=== PATIENT | female | born 1970 | race Caucasian/White ===

== ENCOUNTER 2023-01-16 10:35 | Outpatient (CLI) | payer BC, SELFPAY ==
--- NOTE | 2023-01-16 11:30 | CRLHL7_ITS ---
For Patients: As a result of the Century Cures Act, medical imaging exams and procedure reports are released immediately into your electronic medical record. You may view this report before your referring provider. If you have questions, please contact your health care provider. BILATERAL SCREENING MAMMOGRAM WITH COMPUTER-AIDED DETECTION TECHNIQUE: CC and MLO views were obtained. These mammographic images have been obtained using full-field digital technique. These mammographic images were interpreted with the benefit of computer-aided detection. COMPARISON FILM: 12/13/21, 09/03/20, 08/06/19. FINDINGS: The breasts are heterogeneously dense, which may obscure small masses IMPRESSION: There is no radiographic evidence for malignancy. ASSESSMENT: BI-RADS Category 2: Benign RECOMMENDATION: Routine screening mammogram in 1 year. A lay language report of this examination will be provided to the patient. Trevor Avalos M.D. Diagnostic Radiologist [email or web address] SLY/margarita / be/Dictated by: Trevor Avalos MD @ 01/16/2023 11:50:00 AM (Electronically Signed)
== END 2023-01-16 10:36 | disposition home or self-care (01) ==
LOC: MAMMO 10:35
PROVIDERS: PCP Family Medicine; Visit Provider Family Medicine
DX: Z12.31 Encounter for screening mammogram for malignant neoplasm of breast (principal); R92.2 Inconclusive mammogram; Z00.00 Encounter for general adult medical examination without abnormal findings; Z13.1 Encounter for screening for diabetes mellitus
CPT/HCPCS: 77063; 77067; 80061; 82947

== ENCOUNTER 2023-11-02 10:45 | Outpatient (CLI) | payer BC, SELFPAY ==
--- OUTSIDE RECORDS SUMMARY | 2023-11-02 10:49 | XMS_ITS | Referral Summary ---
Author Name Unknown Organization [facility] Address [address] [place] [address] Care Team Providers Care Online Merchandising Coordinator Name Role Phone Clinic, [facility] Primary Care Provider Allergies Active Allergy Reactions Criticality Noted Date Comments Penicillin G Anaphylaxis High 05/09/2022 Throat closes Medications Medication Sig Dispensed Refills Start Date End Date Status sertraline (ZOLOFT) 100 MG tablet Take 100 mg by mouth daily Active sodium chloride (NICOLAS 128) 2 % ophthalmic solution 1 drop 4 times daily Active ibuprofen (ADVIL/MOTRIN) 800 MG tabletIndications:C ondyloma acuminata Take 1 tablet (800 mg) by mouth every 6 hours as needed for other (mild and/or inflammatory pain) 30 tablet 07/17/2022 Active HYDROmorphone (DILAUDID) 2 MG tabletIndications:C ondyloma acuminata Take 1-2 tablets (2-4 mg) by mouth every 4 hours as needed for moderate to severe pain 28 tablet 07/17/2022 Active senna-docusate (SENOKOT-S/PERICOLA CE) 8.6-50 MG tabletIndications:C ondyloma acuminata Take 1-2 tablets by mouth 2 times daily 30 tablet 07/17/2022 Active silver sulfADIAZINE (SILVADENE) 1 % external creamIndications:Co ndyloma acuminata Apply topically 2 times daily Apply to sore areas of vulva 50 g 1 07/17/2022 Active Active Problems Problem Noted Date Diagnosed Date 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 Fuchs' corneal dystrophy 05/09/2022 Anxiety and depression 05/09/2022 Social History Tobacco Use Types Packs/Day Years Used Date Smoking Tobacco: Never Smokeless Tobacco: Never Tobacco Cessation:Counseling Given: Not Answered Alcohol Use Standard Drinks/Week Comments Yes 0 (1 standard drink = 0.6 oz pur e alcohol) 2 drinks a week Adolescent Education Answer Date Record ed Getting School Help Needed Not on file 03/31 Sex and Gender Information Value Date Recorded Sex Assigned at Not on file Gender Identity Not on file Sexual Orientation Not on file Last Filed Vital Signs Vital Sign Reading Time Taken Comments Blood Pressure 129/85 07/17/2022 9:47 AM GRINDER OPERATOR EXTERNAL TOOL Pulse 60 07/17/2022 9:47 AM GRINDER OPERATOR EXTERNAL TOOL Temperature 36.6 ??C (97.8 ??F) 07/17/2022 9:47 AM CS T Respiratory Rate 14 07/17/2022 9:47 AM GRINDER OPERATOR EXTERNAL TOOL Oxygen Saturation 99% 07/17/2022 9:47 AM GRINDER OPERATOR EXTERNAL TOOL Inhaled Oxygen Concentration - - Weight 75.2 kg (165 lb 11.2 oz) 07/17/2022 6:15 AM GRINDER OPERATOR EXTERNAL TOOL Height 165.1 cm (5' 5) 07/17/2022 6:15 AM GRINDER OPERATOR EXTERNAL TOOL Body Mass Index 27.57 07/17/2022 6:15 AM GRINDER OPERATOR EXTERNAL TOOL Plan of Treatment Not on file Procedures Procedure Name Priority Date/Time Associated Diagnosis Comments GLUCOSE (EXTERNAL RESULT) Routine 07/13/2022 9:16 AM GRINDER OPERATOR EXTERNAL TOOL from Last 3 Months or Most Recently Relevant to Health Maintenance Results * Glucose (External Result) (07/13/2022 9:16 AM GRINDER OPERATOR EXTERNAL TOOL) Glucose (External) 89 70 - 140 mg/dL LAWRENCE SOLER Blood 07/13/2022 9:16 AM GRINDER OPERATOR EXTERNAL TOOL Narrative BRAVO Abdi WANGA - 07/13/2022 9:16 AM GRINDER OPERATOR EXTERNAL TOOL Care Everywhere, [facility] Provider Outside LAB - HIM EXTERNAL R ESULT LAWRENCE SOLER [address] [place] [address], [facility] [phone] from Last 3 Months or Most Recently Relevant to Health Maintenance Care Teams Online Merchandising Coordinator Relationship Specialty Start Date End Date Clinic, [address] [address] PCP - General 07/17/22
--- OUTSIDE RECORDS SUMMARY | 2023-11-02 10:49 | XMS_ITS | Clinical Summary ---
Author Name Unknown Organization [facility] Address [address] [place] [address] Care Team Providers Care Muleser Name Role Phone Lavell Logan MD Primary Care Provider + Source Comments You are receiving this document as you are listed as the primary care provider,follow-up provider, or the patient has been referred to you for consultation.This is in compliance with the Medicare and[facility] EHR Incentive Program,which states Providers who transition their patient to another setting of careor provider of care or refers their patient to another provider of care shouldprovide summary care record for each transition of care or referral. [facility] Allergies Active Allergy Reactions Criticality Noted Date Comments Penicillins Anaphylaxis High 09/01/2016 Medications Medication Sig Dispensed Refills Start Date End Date Status ibuprofen (MOTRIN) 800 MG tablet 800mg by mouth TID 0 08/09/2016 Active sertraline (ZOLOFT) 50 MG tablet 75mg by mouth daily 11 06/30/2016 Active sertraline (ZOLOFT) 25 MG tabletIndications:Prima ry osteoarthritis of right knee 7 07/31/2016 Active diclofenac (VOLTAREN) 1 % gelIndications:Primary osteoarthritis of right knee Apply up to 2 gm to affected areas up to 4 times daily. 100 g 3 10/06/2016 Active Active Problems Problem Noted Date Diagnosed Date Positive KATARINA (antinuclear antibody) 10/08/2016 Patellofemoral pain syndrome 10/08/2016 Primary osteoarthritis of right knee 10/06/2016 Multiple joint pain 10/06/2016 Immunizations Name Administration Dates Next Due Influenza IIV4 (Quadrivalent) 0.5mL (67351) 04/09 Social History Tobacco Use Types Packs/Day Years Used Date Smoking Tobacco: Never Alcohol Use Standard Drinks/Week Comments Yes 0 (1 standard drink = 0.6 oz pur e alcohol) Sex and Gender Information Value Date Recorded Sex Assigned at Not on file Gender Identity Not on file Sexual Orientation Not on file Plan of Treatment Health Maintenance Due Date Last Done Comments Cervical Cancer Screening Due 1970 Colon Cancer Screening Plan Due 1970 Mammogram 1970 Adult Preventive Visit 1988 DTaP/Tdap/Td (1 - Tdap) 1989 HepB (1) 1989 Cholesterol 2015 Zoster/Shingles (1 of 2) 2020 COVID-19 Vaccine (1 - 2022-2 4 season) 2023 Influenza (#1) 2023 04/28/2016 HIV Screening (Preventive Services) Completed 10/06/2016 Hep C Screening (Preventive Services) Completed 10/06/2016 HepA Aged Out No longer eligi ble based on patient's age to complete this topic Hib Aged Out No longer eligi ble based on patient's age to complete this topic IPV (Polio) Aged Out No longer eligi ble based on patient's age to complete this topic MCV4 Aged Out No longer eligi ble based on patient's age to complete this topic Pneumococcal Aged Out No longer eligi ble based on patient's age to complete this topic Procedures Procedure Name Priority Date/Time Associated Diagnosis Comments HIV-1 P24 AND HIV-1/HIV-2 ANTIBODIES Routine 10/06/2016 2:52 PM CDT Multiple joint pain HEPATITIS C ANTIBODY, WITH REFLEX Routine 10/06/2016 2:52 PM CDT Multiple joint pain from Last 3 Months or Most Recently Relevant to Health Maintenance Results * LAB HIV-1 p24 AND HIV-1/HIV-2 ANTIBODIES (10/06/2016 2:52 PM CDT) HIV-1 p24 Ag and HIV-1/HIV-2 Ab Nonreactive Nonreactive PN SOFT 10/06/2016 2:52 PM CDT 10/06/2016 6:42 PM CDT Narrative PN SOFT - 10/06/2016 7:36 PM CDT Performed at [address] [address] CLIA number [id number] Shari Sommers MD LAB_1 Performing Organization Address [facility] de Phone Number PN SOFT [address] [place] [address] * HCAB - Hepatitis C Virus Ade with Reflex In-House (10/06/2016 2:52 PM CDT) Hepatitis C Antibody Nonreactive Nonreactive PN SOFT 10/06/2016 2:52 PM CDT 10/06/2016 6:42 PM CDT Narrative PN SOFT - 10/06/2016 7:36 PM CDT Performed at [address] [address] CLIA number [id number] Shari Sommers MD LAB_1 Performing Organization Address [facility] de Phone Number PN SOFT [address] [place] [address] from Last 3 Months or Most Recently Relevant to Health Maintenance Care Teams Muleser Relationship Specialty Start Date End Date Lavell Logan MD [address] [phone] PCP - General Family Practice 10/06/16
--- OUTSIDE RECORDS SUMMARY | 2023-11-02 10:49 | XMS_ITS | Clinical Summary ---
Author Name Unknown Organization [facility] Address [place], [place] [address] Care Team Providers Care Embedded Linux Engineer Name Role Phone Lavell Logan MD Primary Care Provide r Allergies Active Allergy Reactions Criticality Noted Date Comments Penicillins Throat Swelling/Closing High 11/16/2016 Medications Medication Sig Dispensed Refills Start Date End Date Status fexofenadine-pseud oephedrine, 180-240 MG, (AKIKO-D) 180-240 mg per tablet Take 1 tablet by mouth once daily. 0 11/16/2016 Active sertraline (ZOLOFT) 50 mg tablet Take 1 tablet by mouth once daily. Takes 1 1/2 tabs per day. To equal 75mg 0 11/16/2016 Active CPAP 1 unit 11/16/2016 Active methylPREDNISolone (MEDROL, TANNER,) 4 mg tabletIndications: Acute sinusitis, recurrence not specified, unspecified location,Seasonal allergic rhinitis, unspecified allergic rhinitis trigger Take by mouth as instructed per packaging. 1 Package 11/16/2016 Active metoclopramide HCl (REGLAN) 10 mg tabletIndications: Abdominal pain, unspecified abdominal location Take 0.5 Tablets (5 mg) by mouth every 6 hours if needed for Nausea/Vomiting for up to 5 days. 10 Tablet 10/11/2023 10/16/2023 Active Problems No known active problems Encounters Date Type Department Care Team Description 10/11/2023 2:18 PM CDT - 10/11/2023 5:22 PM CDT Emergency [facility] [address] [place] [address] Christel Cuenca MD Abdominal pain, unspecified abdominal location (Primary Dx) Discharge Disposition: Home Self Care 10/11/2023 Travel from Last 3 Months Social History Tobacco Use Types Packs/Day Years Used Date Smoking Tobacco: Never Alcohol Use Standard Drinks/Week Comments Yes 0 (1 standard drink = 0.6 oz pur e alcohol) Sex and Gender Information Value Date Recorded Sex Assigned at Not on file Gender Identity Not on file Sexual Orientation Not on file Obstetrics History Last Filed Vital Signs Vital Sign Reading Time Taken Comments Blood Pressure 123/73 10/11/2023 5:10 PM CDT Pulse 73 10/11/2023 5:10 PM CDT Temperature 36.4 ??C (97.5 ??F) 10/11/2023 1:22 PM CD T Respiratory Rate 20 10/11/2023 1:22 PM CDT Oxygen Saturation 99% 10/11/2023 5:10 PM CDT Inhaled Oxygen Concentration - - Weight 72.2 kg (159 lb 3.2 oz) 10/11/2023 1:22 P M CDT Height 165.1 cm (5' 5) 10/11/2023 1:22 PM CDT Body Mass Index 26.49 10/11/2023 1:22 PM CDT Plan of Treatment Health Maintenance Due Date Last Done Comments Tdap 1981 Depression screening for age 12+ 1982 HIV for age 15-65 1985 BMI (ht and wt on same day) for age 18+ 1988 Hepatitis C screening for age 18-79 1988 Tetanus booster 1990 Colonoscopy through age 75 2015 Lipids for age 45-75 2015 Mammogram for age 45-75 2015 Zoster (shingles) series for age 50+ (1 of 2) 2020 COVID-19 vaccine series (2022- season) 2023 05/26/2021, 09/10/2020, 08/10/2020 Influenza for age 50-64 03/09/2024 Pap test for age 21-65 12/23/2024 , 12/23/2021, 05/04/2017, Additional history exists Pneumococcal series for age 6-64 Aged Out No longer eligible based on patient's age to complete this topic Procedures Procedure Name Priority Date/Time Associated Diagnosis Comments CT ABDOMEN PELVIS W STAT 10/11/2023 4 :48 PM CDT URINALYSIS MICROSCOPIC STAT 10/11/2023 3:50 PM CDT UA W/ SEDIMENT EXAM REFLEXED PER CRITERIA STAT 10/11/2023 3:50 PM CDT XR ABDOMEN 2 VIEW FLAT AND UPRIGHT OR DECUBITUS STAT 10/11/2023 3:42 PM CDT RED CELL MORPHOLOGY STAT 10/11/2023 1 :47 PM CDT PLATELET ESTIMATE STAT 10/11/2023 1:4 7 PM CDT MANUAL DIFFERENTIAL STAT 10/11/2023 1 :47 PM CDT CBC WITH AUTO DIFFERENTIAL STAT 10/11/2023 1:47 PM CDT COMP METABOLIC PANEL STAT 10/11/2023 1:47 PM CDT CBC WITH AUTO DIFFERENTIAL STAT 10/11/2023 1:47 PM CDT HPV THIN PREP Routine 12/23/2021 11:00 AM CDT from Last 3 Months or Most Recently Relevant to Health Maintenance Results * CT Abdomen Pelvis w IV (Oral Contrast NO) (10/11/2023 4:48 PM CDT) Anatomical Region Laterality Modality Abdomen, Pelvis, AORTA, LIVER, SPLEEN Computed Tomography Christel Cuenca MD CT * URINALYSIS MICROSCOPIC (10/11/2023 3:50 PM CDT) RBC 0-2 0-2, None Seen /HPF 10/11/2023 3:59 PM [facility] WBC 0-2 0-2, 3-5, None Seen /HPF 10/11/2023 3:59 PM [facility] BACTERIA Few None Seen, Rare, Few Bacteria/H PF 10/11/2023 3:59 PM [facility] EPITHELIAL CELLS Few None Seen, Few Epi/HPF 10/11/2023 3:59 PM [facility] Mucus Present 10/11/2023 3:59 PM [facility] Urine URINE SPECIMEN / Unknown Non-Blood / Unknown 10/11/2023 3:50 PM CDT 10/11/2023 3:53 PM CDT [facility] Ed Triage URINE Performing Organization Address City/State/[facility] Co de Phone Number [facility] [address] [phone] * (ABNORMAL) UA W/ SEDIMENT EXAM REFLEXED PER CRITERIA (10/11/2023 3:50 PM CDT) COLOR Yellow Yellow Color 10/11/2023 3:55 PM [facility] CLARITY Clear Clear Clarity 10/11/2023 3:55 PM [facility] SPECIFIC GRAVITY,URINE 1.010 1.010, 1.015, 1.020, 1.025 10/11/2023 3:55 PM [facility] PH,URINE 6.0 6.0, 7.0, 8.0, 5.5, 6.5, 7.5, 8.5 10/11/2023 3:55 PM [facility] UROBILINOGEN,Q UALITATIVE Normal Normal EU/dl 10/11/2023 3:55 PM [facility] PROTEIN, URINE Negative Negative mg/dL 10/11/2023 3:55 PM [facility] GLUCOSE, URINE Negative Negative mg/dL 10/11/2023 3:55 PM [facility] KETONES,URINE 15(A) Negative mg/dL 10/11/2023 3:55 PM [facility] BILIRUBIN,URIN E Negative Negative 10/11/2023 3:55 PM CDT [facility] OCCULT BLOOD,URINE Trace(A) Negative 10/11/2023 3:55 PM CDT [facility] NITRITE Negative Negative 10/11/2023 3:55 PM CDT [facility] LEUKOCYTE ESTERASE Negative Negative 10/11/2023 3:55 PM CDT [facility] Urine URINE SPECIMEN / Unknown Non-Blood / Unknown 10/11/2023 3:50 PM CDT 10/11/2023 3:53 PM CDT Christel Cuenca MD URINE [facility] [address] [phone] * XR ABDOMEN 2 VIEW FLAT AND UPRIGHT OR DECUBITUS (10/11/2023 3:42 PM CDT) Anatomical Region Laterality Modality Abdomen Digital Radiogra phy Christel Cuenca MD GENERAL ANGUS GING * CBC WITH AUTO DIFFERENTIAL (10/11/2023 1:47 PM CDT) WHITE BLOOD COUNT 4.9 4.5 - 11.0 thou/cu mm 10/11/2023 2:37 PM T [facility] RED BLOOD COUNT 4.08 4.00 - 5.20 mil/cu mm 10/11/2023 2:37 PM T [facility] HEMOGLOBIN 12.5 12.0 - 16.0 g/dL 10/11/2023 2:37 PM T [facility] HEMATOCRIT 37.7 33.0 - 51.0 % 10/11/2023 2:37 PM [facility] MCV 92 80 - 100 fL 10/11/2023 2:37 PM CDT [facility] MCH 30.6 26.0 - 34.0 pg 10/11/2023 2:37 PM T [facility] MCHC 33.2 32.0 - 36.0 g/dL 10/11/2023 2:37 PM CDT [facility] RDW 12.0 11.5 - 15.5 % 10/11/2023 2:37 PM CDT [facility] PLATELET COUNT 350 140 - 440 thou/cu mm 10/11/2023 2:37 PM CDT [facility] MPV 9.8 6.5 - 11.0 fL 10/11/2023 2:37 PM CDT [facility] Blood BLOOD SPECIMEN / Unknown Venipuncture / Unknown 10/11/2023 1:47 PM CDT 10/11/2023 1:53 PM CDT [facility] - 10/11/2023 2:37 PM CDT RN to order if patient presents with abdominal pain. [facility] Ed Triage HEMATOLOGY Performing Organization Address [facility] de Phone Number [address] [phone] * RED CELL MORPHOLOGY (10/11/2023 1:47 PM CDT) RBC COMMENT RBC morphology appears normal RBC morphology appears normal, RBC morphology within normal limits for newborns. 10/11/2023 2:37 PM CDT [facility] Blood BLOOD SPECIMEN / Unknown Venipuncture / Unknown 10/11/2023 1:47 PM CDT 10/11/2023 1:53 PM CDT [facility] - 10/11/2023 2:37 PM CDT RN to order if patient presents with abdominal pain. [facility] Ed Triage HEMATOLOGY Performing Organization Address City/[facility] Co de Phone Number [address] [phone] * PLATELET ESTIMATE (10/11/2023 1:47 PM CDT) PLATELET ESTIMATE Adequate Adequate, No estimate 10/11/2023 2:37 PM CDT [facility] Blood BLOOD SPECIMEN / Unknown Venipuncture / Unknown 10/11/2023 1:47 PM CDT 10/11/2023 1:53 PM CDT [facility] - 10/11/2023 2:37 PM CDT RN to order if patient presents with abdominal pain. [facility] Ed Triage HEMATOLOGY [facility] [address] [phone] * MANUAL DIFFERENTIAL (10/11/2023 1:47 PM CDT) % NEUTROPHILS 66.0 % 10/11/2023 2:37 PM CDT [facility] % LYMPHOCYTES 26.0 % 10/11/2023 2:37 PM [facility] % MONOCYTES 6.0 % 10/11/2023 2:37 PM [facility] % EOSINOPHILS 1.0 % 10/11/2023 2:37 PM T [facility] % BASOPHILS 1.0 % 10/11/2023 2:37 PM [facility] NEUTROPHILS ABSOLUTE 3.2 1.7 - 7.0 thou/cu mm 10/11/2023 2:37 PM T [facility] LYMPHOCYTES ABSOLUTE 1.3 0.9 - 2.9 thou/cu mm 10/11/2023 2:37 PM [facility] MONOCYTES ABSOLUTE 0.3 <0.9 thou/cu mm 10/11/2023 2:37 PM [facility] EOSINOPHILS ABSOLUTE 0.0 <0.5 thou/cu mm 10/11/2023 2:37 PM [facility] BASOPHILS ABSOLUTE 0.0 <0.3 thou/cu mm 10/11/2023 2:37 PM [facility] Blood BLOOD SPECIMEN / Unknown Venipuncture / Unknown 10/11/2023 1:47 PM CDT 10/11/2023 1:53 PM CDT [facility] - 10/11/2023 2:37 PM CDT RN to order if patient presents with abdominal pain. [facility] Ed Triage HEMATOLOGY [facility] [address] [phone] * (ABNORMAL) COMP METABOLIC PANEL (10/11/2023 1:47 PM T) SODIUM 141 136 - 145 mmol/L 10/11/2023 2:17 PM [facility] POTASSIUM 3.6 3.5 - 5.1 mmol/L 10/11/2023 2:17 PM [facility] CHLORIDE 103 98 - 107 mmol/L 10/11/2023 2:17 PM [facility] CO2,TOTAL 27 22 - 29 mmol/L 10/11/2023 2:17 PM [facility] ANION GAP 11 5 - 18 10/11/2023 2:17 PM [facility] GLUCOSE 98 70 - 99 mg/dL 10/11/2023 2:17 PM [facility] CALCIUM 8.9 8.6 - 10.0 mg/dL 10/11/2023 2:17 PM [facility] BUN 12 6 - 20 mg/dL 10/11/2023 2:17 PM [facility] CREATININE 0.68 0.50 - 0.90 mg/dL 10/11/2023 2:17 PM [facility] BUN/CREAT RATIO 18 10 - 20 2:17 PM [facility] eGFR >90 >90 mL/min/1.7 3m2 10/11/2023 2:17 PM [facility] Comment:As of 2021, eG FR is calculated by the CKD-EPI creatinine equation without race adjustment. ??eGFR can be influenced by muscle mass, exercise, and diet. ??The reported eGFR is an estimation only and is only applicable if the renal function is stable. ALBUMIN 4.5 4.0 - 4.9 g/dL 10/11/2023 2:17 PM [facility] PROTEIN,TOTAL 7.5 6.0 - 8.0 g/dL 10/11/2023 2:17 PM [facility] BILIRUBIN,TOTAL 0.4 0.0 - 1.2 mg/dL 10/11/2023 2:17 PM CDT [facility] ALK PHOSPHATASE 77 35 - 104 IU/L 10/11/2023 2:17 PM CDT [facility] ALT (SGPT) 48(H) 10 - 35 IU/L 10/11/2023 2:17 PM CDT [facility] AST (SGOT) 93(H) 10 - 35 IU/L 10/11/2023 2:17 PM CDT [facility] Blood BLOOD SPECIMEN / Unknown Venipuncture / Unknown 10/11/2023 1:47 PM CDT 10/11/2023 1:53 PM CDT Latonia Gracia NP CHEMISTRY [facility] [address] [phone] * HPV HIGH RISK (12/23/2021 11:00 AM CDT) TYPE 16 Negative Negative 12/27/2021 4:59 PM CDT [facility] TYPE 18 Negative Negative 12/27/2021 4:59 PM CDT [facility] OTHER HIGH RISK TYPES Negative Negative 12/27/2021 4:59 PM CDT [facility] Other (Cervical/Vagina l) 12/23/2021 11:00 AM CDT 12/26/2021 10:43 AM CDT Narrative [facility] - 12/27/2021 4:59 PM CDT HPV types 16, 18, 31, 33, 35, 39, 45, 51, 52, 56, 58, 59, 66 and 68 DNA were undetectable or below the pre-set threshold. Methodology: Anrde Clary 4800 HPV Test Federica Torres PA-C [facility]OLOGY [facility] [address] [place] [address], [place] from Last 3 Months or Most Recently Relevant to Health Maintenance Care Teams Embedded Linux Engineer Relationship Specialty Start Date End Date Lavell Logan MD [address] [facility] [address] [phone] PCP - General Family Practice 09/22/13
--- OUTSIDE RECORDS SUMMARY | 2023-11-02 10:49 | XMS_ITS | Clinical Summary ---
Author Name Unknown Organization [facility] Address [address] [place] [id number] Care Team Providers Care Safety Teacher Name Role Phone Clinic, [facility] Primary Care Provider Allergies Active [...] Comments Blood Pressure 129/85 07/17/2022 9:47 AM ROLLER CHECKER Pulse 60 07/17/2022 9:47 AM ROLLER CHECKER Temperature 36.6 ??C (97.8 ??F) 07/17/2022 9:47 AM CS T Respiratory Rate 14 07/17/2022 9:47 AM ROLLER CHECKER Oxygen Saturation 99% 07/17/2022 9:47 AM ROLLER CHECKER Inhaled Oxygen Concentration - - Weight 75.2 kg (165 lb 11.2 oz) 07/17/2022 6:15 AM ROLLER CHECKER Height 165.1 cm (5' 5) 07/17/2022 6:15 AM ROLLER CHECKER Body Mass Index 27.57 07/17/2022 6:15 AM ROLLER CHECKER Plan of Treatment Health Maintenance Due Date Last Done Comments ADVANCE CARE PLANNING 1970 ANNUAL REVIEW OF HM ORDERS 1970 CT COLONOGRAPHY 1970 FIT 1970 FLEX SIG 1970 MAMMO SCREENING 1970 YEARLY PREVENTIVE VISIT 1970 sDNA (Cologuard) 1970 COLONOSCOPY 1980 COLORECTAL CANCER SCREENING 1980 HIV SCREENING 1985 HEPATITIS C SCREENING 1988 HEPATITIS B IMMUNIZATION (1 of 3 - 19+ 3-dose series) 1989 PAP 1991 LIPID 2010 COVID-19 Vaccine (2022- season) 2023 05/26/2021, 09/10/2020, 08/10/2020 INFLUENZA VACCINE (#1) 2023 , 04/28/2020, 07/04/2019, Additional history exists PHQ-2 (once per calendar year) 2023 GLUCOSE 07/13/2025 07/13/2022 DTAP/TDAP/TD IMMUNIZATION (4 - Td or Tdap) 07/03/2028 07/03/2018, 10/09/2007, 10/09/2007 ZOSTER IMMUNIZATION Completed 02/28/2022, 2 HPV IMMUNIZATION Aged Out No longer e ligible based on patient's age to complete this topic IPV IMMUNIZATION Aged Out No longer e ligible based on patient's age to complete this topic MENINGITIS IMMUNIZATION Aged Out No l onger eligible based on patient's age to complete this topic Pneumococcal Vaccine: Pediatrics (0 to 5 Years) and At-Risk Patients (6 to 64 Years) Aged Out No longer eligible based on patient's age to complete this topic RSV MONOCLONAL ANTIBODY Aged Out No l onger eligible based on patient's age to complete this topic Procedures Procedure Name Priority Date/Time Associated Diagnosis Comments GLUCOSE (EXTERNAL RESULT) Routine 07/13/2022 9:16 AM ROLLER CHECKER from Last 3 Months or Most Recently Relevant to Health Maintenance Results * Glucose (External Result) (07/13/2022 9:16 AM ROLLER CHECKER) Glucose (External) 89 70 - 140 mg/dL [facility] SOLER Blood 07/13/2022 9:16 AM ROLLER CHECKER Narrative BRAVO Abdi KELLYSEEFRINO - 07/13/2022 9:16 AM ROLLER CHECKER Care Everywhere, [facility] Provider Outside LAB - HIM EXTERNAL R ESULT BRAVO Abdi KELLYSEFERINO [address] [place] [id number], [facility] [phone] from Last 3 Months or Most Recently Relevant to Health Maintenance Care Teams Safety Teacher Relationship Specialty Start Date End Date Clinic, [facility] [address] [place] [address] PCP - General 07/17/22
--- OUTSIDE RECORDS SUMMARY | 2023-11-02 10:50 | XMS_ITS | Encounter Summary ---
Author Name Unknown Organization [facility] Address [address] [place] [id number] Care Team Providers Care Ground Operations Superintendent Name Role Phone Brock Valenzuela D.O. Primary Care Provide r Encounter Details Date Type Department Care Team (Late st Contact Info) Description 04/03/2022 Orders Only RST [facility] [address] [place] [phone] [facility], Provider Screening Test Laboratory Social History Tobacco Use Types Packs/Day Years Used Date Smoking Tobacco: Never Smokeless Tobacco: Never Alcohol Use Standard Drinks/Week Comments Yes 2 (1 standard drink = 0.6 oz pur e alcohol) Humiliation, Afraid, Rape, and Kick questionnair e Answer Date Recorded Within the last year, have y ou been afraid of your partner or ex-partner? No 02/26/2022 Within the last year, have y ou been humiliated or emotionally abused in other ways by your partner or ex-partner? No Within the last year, have y ou been kicked, hit, slapped, or otherwise physically hurt by your partner or ex-partner? No 02/26/2022 Within the last year, have y ou been raped or forced to have any kind of sexual activity by your partner or ex-partner? No 02/26/2022 Social Connection and Isolat ion Panel [NHANES] Answer Date Recorded In a typical week, how many times do you talk on the phone with family, friends, or neighbors? More than three times a week 02/26/2022 How often do you get togethe r with friends or relatives? Once a week 02/26/2022 How often do you attend chur or catholic services? More than 4 times per year 02/26/2022 Do you belong to any clubs o r organizations such as protestant groups, unions, fraternal or athletic groups, or school groups? No 02/26/2022 How often do you attend meet ings of the clubs or organizations you belong to? Patient declined 02/26/2022 Are you , , di vorced, , never , or living with a partner? 02/26/2022 AUDIT-C Answer Date Recorded Q1: How often do you have a drink containing alc ohol? 2-4 times a month 02/26/2022 Q2: How many drinks containi ng alcohol do you have on a typical day when you are drinking? 1 or 2 02/26/2022 Q3: How often do you have si x or more drinks on one occasion? Never 02/26/2022 Overall Financial Resource Strain (CARDIA) Answe r Date Recorded How hard is it for you to pa y for the very basics like food, housing, medical care, and heating? Not hard at all 02/26/2022 PHQ-2 Answer Date Recorded PHQ-2 Score 0 11/28/2019 [facility] - Occupational Stress Questionnaire Answer Date Recorded Do you feel stress - tense, restless, nervous, or anxious, or unable to sleep at night because your mind is troubled all the time - these days? To some extent 02/26/2022 Exercise Vital Sign Answer Date Recorde d On average, how many days pe r week do you engage in moderate to strenuous exercise (like a brisk walk)? 3 days 02/26/2022 On average, how many minutes do you engage in exercise at this level? 30 min 02/26/2022 Hunger Vital Sign Answer Date Recorded Within the past 12 months, y ou worried that your food would run out before you got the money to buy more. Never true 02/27/20 22 Within the past 12 months, t he food you bought just didn't last and you didn't have money to get more. Never true 02/26/2022 PRAPARE - Transportation Answer Date Re corded In the past 12 months, has l ack of transportation kept you from medical appointments or from getting medications? No 02/07 In the past 12 months, has l ack of transportation kept you from meetings, work, or from getting things needed for daily living? No 02/26/2022 Housing Stability Vital Sign Answer Joao e Recorded In the last 12 months, was t here a time when you were not able to pay the mortgage or rent on time? No 02/26/2022 In the last 12 months, how many places have you lived? 1 02/26/2022 In the last 12 months, was t here a time when you did not have a steady place to sleep or slept in a [place] [facility] [place] (including now)? No 02/26/2022 Nutrition Answer Date Recorded Nutrition: EVOO Fat Source Yes 02/26 On average, how many serving s of fruits and vegetables do you eat per day (serving size is equal to 1 cup or approximately the size of a tennis ball)? 2-3 02/26/2022 Dental Answer Date Recorded Dental: Regular Dentist Yes 02/27/20 Employment Answer Date Recorded Employment status Employed and actively working without restrictions 02/26/2022 Education Answer Date Recorded What is the highest level of school you have completed or the highest degree you have received? Professional school degree (e.g., MD, DDS, DVM, GIORGI) 10/20/2019 Sex and Gender Information Value Date Recorded Sex Assigned at Not on file Gender Identity Female 10/20/2019 10:03 AM CDT Sexual Orientation Straight 10/20/2019 10 :03 AM CDT documented as of this encounter Plan of Treatment Not on file documented as of this encounter Visit Diagnoses Diagnosis Screening Test Laboratory documented in this encounter Additional Health Concerns Infection Onset Date Last Indicated Resolved Time COVID19 Pending 04/04/2022 04/04/2022 04/05/2022 2 :43 AM CDT documented as of this encounter Care Teams Ground Operations Superintendent Relationship Specialty Start Date End Date Brock Valenzuela D.O. [address] [place] [phone] PCP - General Internal Medicine 12/19/19 documented as of this encounter
--- OUTSIDE RECORDS SUMMARY | 2023-11-02 10:50 | XMS_ITS | Referral Summary ---
Author Name Unknown Organization [facility] Address [address] [place] [address] Care Team Providers Care Sandfill Operator Name Role Phone Brock Valenzuela D.O. Primary Care Provide r Source Comments Patient records contain information from all sites at [facility]. For routine questions regarding patient records, call [phone] during business hours, M-F 8:00 AM - 5:00 PM Central Time. Record requests for emergency care only can be directed to [phone] at any time.[facility] Encounters Date Type Department Care Team Description 10/11/2023 1:22 PM CDT - 10/11/2023 5:22 PM CDT Emergency [facility] [address] [place] [phone] Abdominal Pain (Primary Dx) Discharge Disposition: Home or Self Care 10/08/2023 Documentation Department of Family Medicine, [facility], in [address] [phone] South Segovia M.D. 10/08/2023 9:08 AM CDT - 10/08/2023 11:59 PM CDT Hospital Encounter Department of Laboratory Medicine in [place], [place] [address] [place] [phone] Kelley Ruiz D.O. Diarrhea Discharge Disposition: Home or Self Care 10/08/2023 Clinical Communication Primary Care on Demand at [facility] [address] [facility] [place] [address] Kelley Ruiz D.OLeighton 10/08/2023 7:30 AM CDT Telemedicine Primary Care on Demand at [facility] [address] [place] [address] Kelley Ruiz D.Christofer Diarrhea (Primary Dx) 09/11/2023 Orders Only Division of Gastroenterology in [place], [place] [address] [place] [address] Phani Kemp M.D. Genetic Susceptibility To Disease 08/14/2023 Orders Only [facility] PCP TH MNT Brock Valenzuela D.O. Screening Lipid; Screening Mammogram Breast Cancer from Last 3 Months Allergies Active Allergy Reactions Criticality Noted Date Comments Penicillins Anaphylaxis 04/16/2018 Medications Medication Sig Dispensed Refills Start Date End Date Status sertraline (ZOLOFT) 100 mg tablet Take 100 mg by mouth daily. 10/16/2019 Active sodium chloride (NICOLAS 128) 2 % ophthalmic solution 1 drop daily. Ac tive silver sulfADIAZINE (SILVADENE, SSD) 1 % cream APPLY 1.5 MM THICKNESS TOPICALLY NEEDED DIRECTED 2022 Active loperamide (IMODIUM A-D) 2 mg capsule Take 1 capsule (2 mg total) by mouth 4 (four) times a day as needed for diarrhea. 30 capsule 10/08/2023 Active azithromycin (ZITHROMAX) 500 mg tablet Take 1 tablet (500 mg total) by mouth daily for 3 days. 3 tablet 10/08/2023 10/11/2023 Active Problems Problem Noted Date Diagnosed Date Immunization Only 02/28/2022 Immunizations Name Administration Dates Next Due DTaP (Infanrix, Tripedia) 10/09/2007 H1N1 All Forms 07/14/2009 H1N1 Inj 07/14/2009 Influenza (IM) Preservative Free 04/07/2009 Influenza Laiv (Nasal) (Discontinued) 05/01/2011 Influenza Split 04/19/2006,06/25/2000,05/12/1999 Influenza, Injectable, Quadrivalent 04/28/2020 Influenza, Unspecified 04/22/2013,04/25/2010,07/2009 RZV (SHINGRIX) 02/28/2022,12/13/2021 SARS-COV-2 (COVID-19) - MODERNA(Discontinued) 05/26/2021 Tdap 07/03/2018,10/09/2007 influenza vaccine QV(FLUBLOK ) (18 years or older) (PF) 07/04/2019 influenza vaccine quad (FLUZONE/FLUARIX) (6 months and older)(PF) 05/26/2021,05/04/2017,04/28/2016,2014 Social History Tobacco Use Types Packs/Day Years [...] 02/26/2022 How often do you attend chur ch or denominational services? More than 4 times per year 02/26/2022 Do you belong to any clubs o r organizations such as orthodox groups, unions, fraternal or athletic groups, or [...] PHQ-2 Answer Date Recorded PHQ-2 Score 0 07/13/2022 [facility] - [...] place to sleep or slept in a senior care (including now)? No 02/26/2022 Nutrition Answer Date [...] Orientation Straight 10/20/2019 10 :03 AM CDT Last Filed Vital Signs Vital Sign Reading Time Taken Comments Blood Pressure 133/80 07/13/2022 8:21 AM WARPER TENDER Pulse 80 07/13/2022 8:21 AM WARPER TENDER Temperature 36.1 ??C (97 ??F) 07/13/2022 8:21 AM WARPER TENDER Respiratory Rate 18 07/13/2022 8:21 AM WARPER TENDER Oxygen Saturation 99% 07/13/2022 8:21 AM WARPER TENDER Inhaled Oxygen Concentration - - Weight 75.8 kg (167 lb 1.7 oz) 07/13/2022 8:21 A M WARPER TENDER Height 166 cm (5' 5.35) 07/13/2022 8:21 AM WARPER TENDER Body Mass Index 27.51 07/13/2022 8:21 AM WARPER TENDER Plan of Treatment Not on file Procedures Procedure Name Priority Date/Time Associated Diagnosis Comments CT ABDOMEN PELVIS WITH IV CONTRAST RAD - Semiurgent (Fast; most ED patients; some inpatients) 10/11/2023 4:45 PM CDT DX ABDOMEN SUPINE AND UPRIGHT 2 VIEWS RAD - Semiurgent (Fast; most ED patients; some inpatients) 10/11/2023 3:45 PM CDT EXTI COMPREHENSIVE METABOLIC PANEL, S/P Routine 10/11/2023 1:47 PM CDT FAT, F Routine 10/08/2023 11:30 AM CDT Diarrhea CALPROTECTIN, F Routine 10/08/2023 9:50 AM CDT Diarrhea HEMOQUANT, F Routine 10/08/2023 9:50 AM CDT Diarrhea GI PATHOGEN PANEL, PCR, F Routine 10/08/2023 9:50 AM CDT Diarrhea EXT THINPREP W/HPV CO-TEST SCREEN Routine 05/04/2017 LIPID PANEL, S Routine 09/28/2015 7:55 AM CDT BI BREAST SCREENING BILATERAL Routine 03/26/2012 7:33 AM CDT from Last 3 Months or Most Recently Relevant to Health Maintenance Results * CT Abdomen Pelvis with IV Contrast (10/11/2023 4:45 PM CDT) Anatomical Region Laterality Modality Abdomen, Pelvis, Abdominal R ST LOS, Abdominal ARZ LOS, Abdominal FLA LOS N/A Computed Tomography 10/11/2023 4:45 PM CDT Impressions 10/11/2023 5:00 PM CDT Nothing clearcut to explain clinical presentation. Probably physiologic appearance of the rectum and sigmoid colon, as discussed. Tiny bland appearing fluid in the pelvis. Narrative 10/11/2023 5:00 PM CDT EXAM: CT ABDOMEN PELVIS WITH IV CONTRAST COMPARISON: No prior for comparison FINDINGS: No bowel obstruction. Couple areas of decompressed rectum and sigmoid colon are not well evaluated, however, there is no definitive obstruction or stricture or hyperemia. These probably represent physiologic contractions; although infection/inflammation is not strictly excluded, this is not strongly favored. If there is persistent severe or worsening symptoms, consider follow-up imaging. No free air. Tiny bland appearing fluid in the cul-de-sac of the pelvis (series 2, image 266). The appendix appears normal. The bladder is decompressed. Small fat-containing umbilical hernia. Focal fatty infiltration along the fissure for the ligamentum teres. Subcentimeter hypodensity in the right hepatic lobe should be benign in the absence of known malignancy or hepatic dysfunction. No hydronephrosis. No urinary calculi. Procedure Note Ivan Gordon M.D. - 10/11/2023 EXAM: CT ABDOMEN PELVIS WITH IV CONTRAST COMPARISON: No prior for comparison FINDINGS: No bowel obstruction. Couple areas of decompressed rectum andsigmoid colon are not well evaluated, however, there is no definitiveobstruction or stricture or hyperemia. These probably representphysiologic contractions; although infection/inflammation is not strictly excluded, this is not stronglyfavored. If there is persistent severe or worsening symptoms, considerfollow-up imaging. No free air. Tiny bland appearing fluid in [id number] of the pelvis (series 2, image 266). The appendix appears normal. The bladder is decompressed. Smallfat-containing umbilical hernia. Focal fatty infiltration along thefissure for the ligamentum teres. Subcentimeter hypodensity in the righthepatic lobe should be benign in the absence of known malignancy or hepatic dysfunction. No hydronephrosis. No urinarycalculi. IMPRESSION: Nothing clearcut to explain clinical presentation. Probably physiologicappearance of the rectum and sigmoid colon, as discussed. Tiny blandappearing fluid in the pelvis. Christel Cuenca M.D. IM CT PROCEDURES * DX Abdomen Supine and Upright 2 Views (10/11/2023 3:45 PM CDT) Anatomical Region Laterality Modality Abdomen, Abdominal RST LOS, Abdominal ARZ LOS, Abdominal FLA LOS Right Digital Radiography Impressions 10/11/2023 3:53 PM CDT Multiple air distended loops of bowel with small bowel measuring up to 3 cm, may be further evaluated with CT to rule out obstruction. There is however moderate volume large bowel stool burden. No definite pneumoperitoneum. No acute osseous abnormality. Lung bases are clear. Narrative 10/11/2023 3:53 PM CDT EXAM: DX ABDOMEN SUPINE AND UPRIGHT 2 VIEWS Procedure Note Екатерина Cadet D.O. - 10/11/2023 EXAM: DX ABDOMEN SUPINE AND UPRIGHT 2 VIEWS IMPRESSION: Multiple air distended loops of bowel with small bowel measuring up to 3cm, may be further evaluated with CT to rule out obstruction. There ishowever moderate volume large bowel stool burden. No definitepneumoperitoneum. No acute osseous abnormality. Lung bases are clear. Christel Cuenca M.D. IMG DIAGNOSTIC IM AGING PROCEDURES * Fat, Feces (10/08/2023 11:30 AM CDT) Total Weight 18 g 10/10/2023 7:53 AM CDT DTL Duration Random h 10/08/2023 12:02 PM CDT DTL Comment: More reliable results can be obtained from a timed collection. 48 and 72 hour collections will give the most reliable results. Percent Fat >20% in a random collection is suggestive of a fat malabsorption disorder and should be confirmed with a timed collection. % Fat 7 <20 % fat 10/10/2023 11:07 AM CDT DTL Comment: ----ADDITIONAL INFORMATION---- This test was developed and its performance characteristics determined by [facility] in a manner consistent with CLIA requirements. This test has not been cleared or approved by the U.S. Food and Drug Administration. Stool (Stool) 10/08/2023 11: 30 AM CDT 10/09/2023 8:13 AM CDT Kelley Ruiz D.O. LAB BODY FLUIDS AND STOOLS ORDERABLES [facility] [address] [place] [address], [facility] DTL [facility] [address] [place] [address] * (ABNORMAL) GI Pathogen Panel, PCR, Feces (10/08/2023 9:50 AM CDT) Specimen Source STOOL 5:20 PM CDT [facility] Campylobacter species Positive(A) Negative 10/08/2023 5:20 PM CDT [facility] C. difficile toxin Negative Negative 2023 5:20 PM CDT [facility] Plesiomonas shigelloides Negative Negative 10/08/2023 5:20 PM CDT [facility] Salmonella species Negative Negative 2023 5:20 PM CDT [facility] Vibrio species Negative Negative 10/08/2023 5:20 PM CDT [facility] Vibrio cholerae Negative Negative 5:20 PM CDT [facility] Yersinia species Negative Negative 10/08/19 5:20 PM CDT [facility] Enteroaggregative E. coli (EAEC) Negative Negative 10/08/2023 5:20 PM CDT [facility] Enteropathogenic E. coli (EPEC) Negative Negative 10/08/2023 5:20 PM CDT [facility] Enterotoxigenic E. coli (ETEC) Negative Negative 10/08/2023 5:20 PM CDT [facility] Shiga toxin producing E. coli Negative Negative 10/08/2023 5:20 PM CDT [facility] Shigella/Enteroinvas flavio E. coli Negative Negative 10/08/2023 5:20 PM CDT [facility] Cryptosporidium species Negative Negative 10/08/2023 5:20 PM CDT [facility] Cyclospora cayetanensis Negative Negative 10/08/2023 5:20 PM CDT [facility] Entamoeba histolytica Negative Negative 10/08/2023 5:20 PM CDT [facility] Giardia Negative Negative 10/08/2023 5:20 PM CDT [facility] Adenovirus F40/41 Negative Negative 024 5:20 PM CDT [facility] Astrovirus Negative Negative 10/08/2023 5:20 PM CDT [facility] Norovirus GI/GII Negative Negative 10/08/19 5:20 PM CDT [facility] Rotavirus Ag, F Negative Negative 5:20 PM CDT [facility] Sapovirus Negative Negative 10/08/2023 5:20 PM CDT [facility] Comment: ----ADDITIONAL INFORMATION---- This assay is performed using the FDA-cleared Tomorrowish GI Panel ([employer] Semi-Urgent This is a semi-urgent result(RODRIGUEZ) [facility] Stool (Stool) 10/08/2023 9:5 0 AM CDT 10/08/2023 2:42 PM CDT Kelley Ruiz D.O. LAB MICROBIOLOGY - GENERAL ORDERABLES Performing Organization Address [facility] Co de Phone Number [facility] [address] [place] [address], [facility] AUST [address] [place] [address] * HemoQuant, Feces (10/08/2023 9:50 AM CDT) Hemoglobin, Fecal <0.3 <=2 mg Hb/g 10/09/2023 3:47 PM CDT DT Comment: ----ADDITIONAL INFORMATION---- This test was developed and its performance characteristics determined by [facility] in a manner consistent with CLIA requirements. This test has not been cleared or approved by the U.S. Food and Drug Administration. Stool (Stool) 10/08/2023 9:5 0 AM CDT 10/09/2023 8:08 AM CDT Kelley Ruiz D.O. LAB BODY FLUIDS AND STOOLS ORDERABLES Performing Organization Address [facility] Co de Phone Number [facility] [address] [place] [address], [facility] DT [address] [facility] [address] [place] [address] * (ABNORMAL) Calprotectin, Feces (10/08/2023 9:50 AM CDT) Calprotectin, F 1599(H) <50.0 (Normal) mcg/g 10/10/2023 4:[address] [facility] Comment:Interpretation: Abno rmal (>120 mcg/g) Stool (Stool) 10/08/2023 9:5 0 AM CDT 10/10/2023 12:53 PM CDT Kelley Ruiz D.O. LAB BODY FLUIDS AND STOOLS ORDERABLES [facility] [address] [place] [address] [facility] [address] [place] [address] * EXT ThinPrep w/HPV Co-Test Screen (05/04/2017) EXT ThinPrep w/HPV Co-Test Screen Normal - See Scanned Report for Details Normal - See Scanned Report for Details, HIMS - Report Received and Scanned Thin Prep Vial (Cervix/Endocervi x) 05/04/2017 Historical Provider LAB PAP PATHDX ORDER LORRAINE * Lipid Panel (09/28/2015 7:55 AM CDT) Calculated LDL 95 <=129 MGDL POWERCHART Comment: 2014 National Lipid Association recommendations for LDL-C in adults ages 18 and up: Desirable <100 mg/dL Above desirable 100-129 mg/dL Borderline high 130-159 mg/dL High 160-189 mg/dL Very High 190 mg/dL 2014 National Lipid Association recommendations for LDL-C in children ages 2 to 17. Acceptable <110 mg/dL Borderline High 110-129mg/dL High 130 mg/dL LDL-C >190mg/dL: The markedly elevated LDL level is suggestive of a genetic condition such as familial hypercholesterolemia(FH) or familial defective apolipoprotein B-100 (FDB). Molecular genetic testing for FH and FDB is available through [email or web address]: FH/ADH Genetic Reflex Panel (test ADHP). Acquired (non-genetic) causes of markedly increased LDL cholesterol include cholestatic liver disease due to the presence of LpX. If a genetic form of hypercholesterolemia is suspected, family studies including biochemical testing for lipids (total cholesterol,triglycerides, LDL cholesterol and HDL cholesterol) are recommended. ??Please contact the laboratory at or the on-line test catalog at [employer] for information about how to order these tests or to speak with a genetic counselor. Further interpretation would require clinical information. Total Cholesterol/HDL Ratio 3.04 POWERCHART Cholesterol, Total 170 <=199 MGDL POWERCHART Comment: 2014 National Lipid Association recommendations for Total Cholesterol in adults ages 18 and up: Desirable <200 mg/dL Borderline high 200-239 mg/dL High 240 mg/dL 2014 National Lipid Association recommendations for Total Cholesterol in children ages 2 to 17. Acceptable <170 mg/dL Borderline High 170-199 mg/dL High 200 mg/dL HX HDL 56 >=50 MGDL POWERCHART Comment: 2014 National Lipid Association recommendations for HDL-C in adults ages 18 and up: Low <40 mg/dL (Men) Low <50 mg/dL (Women) 2014 National Lipid Association recommendations for HDL-C in children ages 2 to 17. Low <40 mg/dL Borderline Low 40-45 mg/dL Acceptable >45 mg/dL Triglycerides 97 <=149 MGDL POWERCHART Comment: 2014 National Lipid Association recommendations for Triglycerides in adults ages 18 and up: Normal <150 mg/dL Borderline High 150-199 mg/dL High 200-499 mg/dL Very High 500 mg/dL 2014 National Lipid Association recommendations for Triglycerides in children ages 2 to 9. Acceptable <75 mg/dL Borderline High 75-99 mg/dL High 100 mg/dL 2014 National Lipid Association recommendations for Triglycerides in children ages 10 to 17. Acceptable <90 mg/dL Borderline High 90-129 mg/dL High 130 mg/dL Trigs >400mg/dL: Triglycerides >400 mg/dL. Calculated LDL cholesterol is not valid. Non-HDL cholesterol may be used for risk assessment when triglycerides are >400mg/dL. HXLDL/HDL 2 POWERCHART Blood 09/28/2015 7:55 AM CDT Eugene Heredia M.D. LAB BLOOD ADD-ON POWERCHART * BI Breast Screening Bilateral (03/26/2012 7:33 AM CDT) Anatomical Region Laterality Modality Breast Bilateral Mammography 03/26/2012 7:33 AM CDT Impressions 03/26/2012 5:29 PM CDT BI-RADS code 1, negative. Recommendations: ??I recommend a follow-up mammogram in 1 year, self breast exams at least once per month and clinical breast exam at least once per year. ??Of note, benign findings should not deter biopsy in the setting of a palpable abnormality. ??The false negative rate of mammography is approximately 10%. CODE: 1-NEGATIVE Appropriate letter sent. Full field digital mammography is used and Computer Aided Detection is performed on the digital mammogram images. Narrative 03/26/2012 5:29 PM CDT EXAM: ME Mammo Screening w/ CADD INDICATION: mammo COMPARISON: None. FINDINGS: The breasts are heterogeneously dense. The medial inferior portion of the left breast is asymmetrically more dense than the corresponding region in the right breast. Nothing suspicious within either breast, however. Procedure Note Bogdan Millan M.D. / William Juan M.D. - 11/29/2016 EXAM: ME Mammo Screening w/ CADD INDICATION: mammo COMPARISON: None. FINDINGS: The breasts are heterogeneously dense. The medial inferior portion of the left breast is asymmetrically more dense than the corresponding region in the right breast. Nothing suspicious within either breast, however. IMPRESSION: BI-RADS code 1, negative. Recommendations: I recommend a follow-up mammogram in 1 year, self breast exams at least once per month and clinical breast exam at least once per year. Of note, benign findings should not deter biopsy in the setting of a palpable abnormality. The false negative rate of mammography is approximately 10%. CODE: 1-NEGATIVE Appropriate letter sent. Full field digital mammography is used and Computer Aided Detection is performed on the digital mammogram images. Amadeo Valerio(Jerardo)(CT) IMG BI PROCE DURES from Last 3 Months or Most Recently Relevant to Health Maintenance Care Teams Sandfill Operator Relationship Specialty Start Date End Date Brock Valenzuela D.O. [address] [phone] PCP - General Internal Medicine 12/19/19
--- OUTSIDE RECORDS SUMMARY | 2023-11-02 10:50 | XMS_ITS | Encounter Summary ---
Author Name Unknown Organization [facility] Address [address] [place] [address] Care Team Providers Care Oracle Database Manager Name Role Phone Brock Valenzuela D.O. Primary Care Provide r Encounter Details Date Type Department Care Team (Late st Contact Info) Description 09/11/2023 Orders Only Division of Gastroenterology in [place], [place] [address] [place] [address] Phani Kemp M.D. [address] [place] [phone] Genetic Susceptibility To Disease Social History Tobacco Use Types Packs/Day Years [...] often do you attend chur ch or caodaism services? More than 4 times per year 02/26/2022 Do you belong to any clubs o r organizations such as mu-ism groups, unions, fraternal or athletic groups, or [...] Answer Date Recorded PHQ-2 Score 0 07/13/2022 [facility] - Occupational Stress [...] money to buy more. Never true 02/27/20 Within the past 12 months, t he [...] place to sleep or slept in a care home (including now)? No 02/26/2022 Nutrition Answer Date [...] on file documented as of this encounter Procedures Procedure Name Priority Date/Time Associated Diagnosis Comments EXT TAPESTRY Routine 12/29/2022 12:00 AM CDT Genetic Susceptibility To Disease documented in this encounter Results * EXT Tapestry (12/29/2022 12:00 AM CDT) Gene Studied BRCA1,BRCA2,MLH1,MSH 2, MSH6,PMS2,EPCAM,APOB,L DLR,LDLRAP1,PCSK9 02/01/2023 12:00 AM [employer] [facility] Genetic Disease Assessed Evaluation of 11 genes associated with Hereditary Breast and Ovarian Cancer, Mejia Syndrome and Familial Hypercholesterolemia. 02/01/2023 12:00 AM [facility] Genetic Analysis Overall Interpretation Negative results through Tapestry do not replace diagnostic testing for patients with a personal or family history of cancer/hypercholestero lemia due to limitations with methodology. Consider a referral to a genetic counselor for diagnostic testing if warranted. 02/01/2023 12:00 AM [facility] Report See Tapestry PDF Report No actionable gene changes were detected in the genes that cause Familial Hypercholesterolemia. The genes tested for this condition were APOB, LDLR, LDLRAP1, and PCSK9.No actionable gene changes were detected in the genes that cause Hereditary Breast and Ovarian Cancer. The genes tested for this condition were BRCA1 and BRCA2.No actionable gene changes were detected in the genes that cause Mejia Syndrome. The genes tested for this condition were MLH1, MSH2, MSH6, PMS2 and EPCAM. DNA extracted from this individual's sample was captured and enriched using a custom set of reagents ([employer] chemistry). Targeted regions were sequenced using an Illumina DNA sequencing system. Your sequence was matched to a modified version of the chloe standard reference genome (GRCh38). Variant calling was completed using a customized version of [employer] software, requiring 20x coverage for validated variant calls. Copy Number Variants (CNVs) were called using a proprietary bioinformatics pipeline that compared the coverage profile of your sample with the coverage profiles of other reference set samples. [facility] [employer] then analyzed the generated variant data for the exons and 10 bp of flanking intronic sequence (and select tagged intronic variants) of the 11 genes included in [employer] from the [employer] Database. Your sample was reviewed for single nucleotide variants (SNVs), indels up to 20 bp in length, and CNVs that are known or predicted to be actionable. NOTE: This assay has limited sensitivity to CNVs smaller than a few exons. APOB, PCSK9, and LDLR interpretation and reporting is specific to the Familial Hypercholesterolemia phenotype. Variants associated with other phenotypes such as Hypobetalipoproteinemi a are not included. Some known complex variants like the inversion of exons 1-7 in the MSH2 gene (Shelli inversion), exons 11-15 of the PMS2 gene, or variants within or immediately adjacent to long homopolymer runs are not analyzed or reported. There are regions that are not covered, such as deep intronic, promoter, and enhancer regions. This assay cannot detect all variants known to increase disease risk. Other clinical diagnostic testing for these conditions could identify variants not detected by this test. If you have had previous testing, these results should be taken into consideration during risk assessments and medical management. 02/01/2023 12:00 AM CDT [facility] Human Reference Sequence Assembly GRCh38 02/01/2023 12:00 AM CDT [facility] Saliva (Mouth) 12/29/2022 Phani Kemp M.D. LAB GENETI C TESTING [facility] [employer] [id number] [facility], [address] [place] [address], [facility] [address] [facility], [address] [address] documented in this encounter Visit Diagnoses Diagnosis Genetic Susceptibility To Disease documented in this encounter Care Teams Oracle Database Manager Relationship Specialty Start Date End Date Brock Valenzuela D.O. [address] [place] [phone] PCP - General Internal Medicine 12/19/19 documented as of this encounter
--- OUTSIDE RECORDS SUMMARY | 2023-11-02 10:50 | XMS_ITS | Encounter Summary ---
Author Name Unknown Organization [facility] Address [address] [place] [address] Care Team Providers Care Customer Sales Service Manager Name Role Phone Brock Valenzuela D.O. Primary Care Provide r Reason for Referral * Outpatient (Routine) - Authorized Specialty Diagnoses / Procedures Referred By Abby huston Referred To Contact Diagnoses Screening Mammogram Breast Cancer Procedures BI Breast Screening Bilateral with Tomosynthesis Brock Valenzuela D.O. [address] [place] [phone] [facility] Referral ID Status Reason Start Date Expiration Date V isits Requested Visits Authorized [id number] Authorized 08/14/2023 08/13/2024 1 1 T CATCHER Encounter Details Date Type Department Care Team (Late st Contact Info) Description 08/14/2023 Orders Only [facility] SEMN PCP TH MNT Brock Valenzuela D.O. [address] [place] [phone] Screening Lipid; Screening Mammogram Breast Cancer Social History Tobacco Use Types Packs/Day Years [...] week 02/26/2022 [facility] often [facility] attend [facility] or buddhist services? More than 4 times per year 02/26/2022 Do you belong to any clubs o r organizations such as mosque groups, unions, fraternal or athletic groups, or [...] Answer Date Recorded PHQ-2 Score 0 07/13/2022 Citizen Of [place] [facility] Occup[facility] ional [facility] - Occupational Stress [...] place to sleep or slept in a residential (including now)? No 02/26/2022 Nutrition Answer Date [...] you have received? Professional school degree (e.g., , DDS, DVM, GIORGI) 10/20/2019 Sex and Gender Information Value Date Recorded Sex Assigned at Not on file Gender Identity Female 10/20/2019 10:03 AM CDT Sexual Orientation Straight 10/20/2019 10 :03 AM CDT documented as of this encounter Plan of Treatment Scheduled Orders Name Type Priority Associated Diagnoses Order Schedule Lipid Panel Lab Routine Screening Lipid Expected: 08/28/2023, Expires: 02/10/2024 BI Breast Screening Bilateral with Tomosynthesis Imaging RAD - Routine (most inpatients and all outpatients) Screening Mammogram Breast Cancer Expected: 09/13/2023, Expires: 02/10/2024 documented as of this encounter Visit Diagnoses Diagnosis Screening Lipid Screening Mammogram Breast Cancer documented in this encounter Care Teams Customer Sales Service Manager Relationship Specialty Start Date End Date Brock Valenzuela D.O. [address] [place] [phone] PCP - General Internal Medicine 12/19/19 documented as of this encounter
--- OUTSIDE RECORDS SUMMARY | 2023-11-02 10:50 | XMS_ITS | Encounter Summary ---
Author Name Unknown Organization [facility] Address [address] [place] [address] Care Team Providers Care Oil And Gas Recruiter Name Role Phone Brock Valenzuela D.O. Primary Care Provide r Reason for Visit * Reason Comments Abdominal Pain Encounter Details Date Type Department Care Team (Late st Contact Info) Description 10/11/2023 1:22 PM CDT - 10/11/2023 5:22 PM CDT Emergency [facility] [address] [place] [phone] Abdominal Pain (Primary Dx) Discharge Disposition: Home or Self Care Social History Tobacco Use Types Packs/Day Years [...] How often do you attend chur or cheondoism services? More than 4 times per year 02/26/2022 Do you belong to any clubs o r organizations such as pentecostalism groups, unions, fraternal or athletic groups, or [...] Answer Date Recorded PHQ-2 Score 0 07/13/2022 [facility] - Occupational Stress Questionnaire Answer Date Recorded [...] place to sleep or slept in a skilled nursing (including now)? No 02/26/2022 Nutrition Answer Date [...] AM CDT documented as of this encounter Medications at Time of Discharge Medication Sig Dispensed Refills Start Date End Date loperamide (IMODIUM A-D) 2 mg capsule Take 1 capsule (2 mg total) by mouth 4 (four) times a day as needed for diarrhea. 30 capsule 10/08/2023 sertraline (ZOLOFT) 100 mg tablet Take 100 mg by mouth daily. 10/16/2019 silver sulfADIAZINE (SILVADENE, SSD) 1 % cream APPLY 1.5 MM THICKNESS TOPICALLY NEEDED DIRECTED 2022 sodium chloride (NICOLAS 128) 2 % ophthalmic solution 1 drop daily. azithromycin (ZITHROMAX) 500 mg tablet Take 1 tablet (500 mg total) by mouth daily for 3 days. 3 tablet 10/08/2023 10/11/2023 documented as of this encounter Plan of Treatment Not on file documented as of this encounter Procedures Procedure Name Priority Date/Time Associated Diagnosis Comments CT ABDOMEN PELVIS WITH IV CONTRAST RAD - Semiurgent (Fast; most ED patients; some inpatients) 10/11/2023 4:45 PM CDT DX ABDOMEN SUPINE AND UPRIGHT 2 VIEWS RAD - Semiurgent (Fast; most ED patients; some inpatients) 10/11/2023 3:45 PM CDT documented in this encounter Results * CT Abdomen Pelvis with IV [...] free air. Tiny bland appearing fluid in [id number]-vx-qhi of the pelvis (series 2, image 266). [...] osseous abnormality. Lung bases are clear. Christel TRANG DIAGNOSTIC IM AGING PROCEDURES documented in this encounter Visit Diagnoses Diagnosis Abdominal Pain- Primary documented in this encounter Administered Medications Inactive Administered Medications - up to 3 most recent administrations Medication Order MAR Action Action Date Dose Rate Site iohexoL 300 mg iodine/mL solution 100 mL (OMNIPAQUE) 100 mL, intravenous, Once in imaging, contrast, Starting on Magda 10/11/23 at 1644, For 1 dose Given 10/11/2023 4:40 PM CDT 100 mL Right Antecubital sodium chloride 0.9 % flush 75 mL 75 mL, intravenous, Once, On Magda 10/11/23 at 1645, For 1 dose Given 10/11/2023 4:40 PM CDT 75 mL sodium chloride 0.9 % injection 10 mL 10 mL, intravenous, As needed, line care, Starting on Magda 10/11/23 at 1644 Given 10/11/2023 4:40 PM CDT 10 mL Right Antecubital documented in this encounter Active and Recently Administered Medications Times are shown in CDT. Scheduled Medication Order 10/09/2023 10/10/2023 10/11/2023 sodium chloride 0.9 % flush 75 mL (COMPLETED) 75 mL, intravenous, Once, On Magda 10/11/23 at 1645, For 1 dose 1640 (Given - Provid er: Lisbeth Gordon) PRN Medication Order 10/09/2023 10/10/2023 10/11/2023 iohexoL 300 mg iodine/mL solution 100 mL (OMNIPAQUE) (COMPLETED) 100 mL, intravenous, Once in imaging, contrast, Starting on Magda 10/11/23 at 1644, For 1 dose 1640 (Given - Provid er: Lisbeth Gordon - Comment: lot# [id number] 31 jul 2026) sodium chloride 0.9 % injection 10 mL (CANCELED) 10 mL, intravenous, As needed, line care, Starting on Magda 10/11/23 at 1644 1640 (Given - Provid er: Lisbeth Gordon) documented in this encounter Care Teams Oil And Gas Recruiter Relationship Specialty Start Date End Date Brock Valenzuela D.O. [address] [place] [phone] PCP - General Internal Medicine 12/19/19 documented as of this encounter
--- OUTSIDE RECORDS SUMMARY | 2023-11-02 10:50 | XMS_ITS | Encounter Summary ---
Author Name Unknown Organization [facility] Address [address] [place] [address] Care Team Providers Care Therapist Physical Name Role Phone Brock Valenzuela D.O. Primary Care Provide r Encounter Details Date Type Department Care Team (Late st Contact Info) Description 10/08/2023 Clinical Communication Primary Care on Demand at [facility] [address] [place] [address] Kelley Ruiz D.O. [address] [place] [address] Social History Tobacco Use Types Packs/Day Years [...] often do you attend chur ch or sikh services? More than 4 times per year 02/26/2022 Do you belong to any clubs o r organizations such as shinto groups, unions, fraternal or athletic groups, or [...] Answer Date Recorded PHQ-2 Score 0 07/13/2022 [facility] - Occupational [...] place to sleep or slept in a group home (including now)? No 02/26/2022 Nutrition Answer [...] documented as of this encounter Visit Diagnoses Not on filedocumented in this encounter Care Teams Therapist Physical Relationship Specialty Start Date End Date Brock Valenzuela D.O. [address] [place] [phone] PCP - General Internal Medicine 12/19/19 documented as of this encounter
--- OUTSIDE RECORDS SUMMARY | 2023-11-02 10:50 | XMS_ITS ---
Author Name Unknown Organization [facility] Address [address] [place] [address] Care Team Providers Care Alarm Signal Operator Name Role Phone Unavailable Unavailable Unavailable Surgery Details Not on file Complications Check Surgery Details section. Procedure Estimated Blood Loss Check Surgery Details section. Procedure Findings Check Surgery Details section. Procedure Specimens Taken Check Surgery Details section.
--- OUTSIDE RECORDS SUMMARY | 2023-11-02 10:50 | XMS_ITS | Clinical Summary ---
Author Name Unknown Organization [facility] Address [address] [place] [address] Care Team Providers Care Airborne Operations Name Role Phone Brock Valenzuela D.O. Primary Care Provide r Source Comments Patient records contain information from all sites at [facility]. For routine questions regarding patient records, call [phone] during business hours, M-F 8:00 AM - 5:00 PM Central Time. Record requests for emergency care only can be directed to [phone] at any time.[facility] Allergies Active Allergy Reactions Criticality Noted Date [...] Noted Date Diagnosed Date Immunization Only 02/28/2022 Encounters Date Type Department Care Team Description 10/11/2023 1:22 PM CDT - 10/11/2023 5:22 PM CDT Emergency [facility] [address] [place] [phone] Abdominal Pain (Primary Dx) Discharge Disposition: Home or Self Care 10/08/2023 9:08 AM CDT - 10/08/2023 11:59 PM CDT Hospital Encounter Department of Laboratory Medicine in [place], [place] [address] [place] [phone] Kelley Ruiz D.O. Diarrhea Discharge Disposition: Home or Self Care 10/08/2023 7:30 AM CDT Telemedicine Primary Care on Demand at [address] [phone] Kelley Ruiz D.O. Diarrhea (Primary Dx) 10/08/2023 Documentation Department of Family Medicine, [facility], in [address] [phone] [place] M.D. 10/08/2023 Clinical Communication Primary Care on Demand at [address] [phone] Kelley Ruiz D.O. 09/11/2023 Orders Only Division of Gastroenterology in [place], [place] [address] [place] [address] Phani Kemp M.D. Genetic Susceptibility To Disease 08/14/2023 Orders Only [facility] Val[facility] D.O. Screening Lipid; Screening Mammogram Breast Cancer from Last 3 Months Immunizations Name Administration Dates Next Due DTaP [...] quad (FLUZONE/FLUARIX) (6 months and older)(PF) 05/26/2021,05/04/2017,04/28/2016,2014 Family History Medical History Relation Name Comments Hyperlipidemia Brother Bandar Katz Hypertension Brother Bandar Katz Clotting disorder Father Pedro Katz Coronary artery disease Father Pedro Katz Heart attack Father Pedro Katz Hyperlipidemia Father Pedro Katz Diabetes Father's Sister Rere Carreno Colon polyps Mother Nettiemoses [place] Diabetes Mother's Sister Huma Palacios Coronary artery disease Paternal Grandfather Gene [place] ch Coronary artery disease Paternal Grandmother Rebekah B udach Relation Name Status Comments Brother Bandar Katz Father Pedro Budach Father's Sister Rere Carreno Mother Nettie Latoya Mother's Sister Huma [place] Paternal Grandfather Gene Budach Paternal Grandmother Rebekah Budach Social History Tobacco Use Types Packs/Day Years [...] often do you attend chur ch or advent services? More than 4 times per year 02/26/2022 Do you belong to any clubs o r organizations such as sabianist groups, unions, fraternal or athletic groups, or [...] Answer Date Recorded PHQ-2 Score 0 07/13/2022 [facility] - Occupational Stress Questionnaire Answer Date Recorded [...] place to sleep or slept in a nursing home (including now)? No 02/26/2022 Nutrition Answer [...] Comments Blood Pressure 133/80 07/13/2022 8:21 AM HIDE DYER Pulse 80 07/13/2022 8:21 AM HIDE DYER Temperature 36.1 ??C (97 ??F) 07/13/2022 8:21 AM HIDE DYER Respiratory Rate 18 07/13/2022 8:21 AM HIDE DYER Oxygen Saturation 99% 07/13/2022 8:21 AM HIDE DYER Inhaled Oxygen Concentration - - Weight 75.8 kg (167 lb 1.7 oz) 07/13/2022 8:21 A M HIDE DYER Height 166 cm (5' 5.35) 07/13/2022 8:21 AM HIDE DYER Body Mass Index 27.51 07/13/2022 8:21 AM HIDE DYER Plan of Treatment Health Maintenance Due Date Last Done Comments CT Colonography 1970 Cologuard 1970 Colonoscopy 1970 Colorectal Cancer Surveillance 1970 HIV Screening 1970 Hepatitis C Screening 1970 Hepatitis B Vaccines (1 of 3 - 19+ 3-dose series) 1989 Mammogram 03/26/2013 03/26/2012 Lipid (Cholesterol) Screening 09/27/2020 09/28/2015, 09/27/2013, 04/02/2012 COVID-19 Vaccine ( season) 2023 05/26/2021, 09/10/2020, 08/10/2020 Influenza Vaccine (#1) 2023 , 05/26/2021, 04/28/2020, Additional history exists Depression Screening (Annual PHQ-2) 07/09/2023 Cervical Cancer Screening 12/23/20242021, 05/04/2017, 05/04/2017, Additional history exists Fasting Glucose for Diabetes Screening 10/10/2026 10/11/2023, 07/13/2022, 07/13/2022, Additional history exists DTaP,Tdap,and Td Vaccines (4 - Td or Tdap) 07/03/2028 07/03/2018, 10/09/2007, 10/09/2007 Zoster Vaccines Completed 02/28/2022, 12/13/2021 Pneumococcal vaccine (0-64 years) Aged Out No longer eligible based on [...] free air. Tiny bland appearing fluid in drxogm-[id number]-rfb of the pelvis (series 2, image 266). [...] fluid in the pelvis. Christel Cuenca M.D. Zach CT PROCEDURES * DX Abdomen Supine and [...] and its performance characteristics determined by [facility] in a manner consistent with CLIA requirements. This test has not been cleared or approved by the U.S. Food and Drug Administration. Stool (Stool) 10/08/2023 11: 30 AM CDT 10/09/2023 8:13 AM CDT Kelley Ruiz D.O. LAB BODY FLUIDS AND STOOLS ORDERABLES [facility] [address] [place] [address], [facility] DTL [facility] [address] [place] [address] * (ABNORMAL) GI Pathogen Panel, PCR, Feces [...] This assay is performed using the FDA-cleared Scopis GI Panel ([employer] Semi-Urgent This is a semi-urgent result(RODRIGUEZ) [facility] Stool (Stool) 10/08/2023 9:5 0 AM CDT 10/08/2023 2:42 PM CDT Kelley Ruiz D.O. LAB MICROBIOLOGY - GENERAL ORDERABLES Performing Organization Address [facility] Co de Phone Number [facility] [address] [place] [address], [place] [address] [place] [address] * HemoQuant, Feces (10/08/2023 9:50 AM CDT) Hemoglobin, Fecal <0.3 <=2 mg Hb/g 10/09/2023 3:47 PM CDT DTL Comment: ----ADDITIONAL INFORMATION---- This test was developed and its performance characteristics determined by [facility] in a manner consistent with CLIA requirements. This test has not been cleared or approved by the U.S. Food and Drug Administration. Stool (Stool) 10/08/2023 9:5 0 AM CDT 10/09/2023 8:08 AM CDT Kelley Ruiz D.O. LAB BODY FLUIDS AND STOOLS ORDERABLES Performing Organization Address [facility] Co de Phone Number [facility] [address] [place] [address], [facility] DT 200 [facility] [address] [place] [address] * (ABNORMAL) Calprotectin, Feces (10/08/2023 9:50 AM CDT) Calprotectin, F 1599(H) <50.0 (Normal) mcg/g 10/10/2023 4:38 PM CDT [facility] Comment:Interpretation: Abno rmal (>120 mcg/g) Stool (Stool) 10/08/2023 9:5 0 AM CDT 10/10/2023 12:53 PM CDT Kelley Ruiz D.O. LAB BODY FLUIDS AND STOOLS ORDERABLES Performing Organization Address City/[facility] Co de Phone Number [facility] [address] [place] [address] [facility] [address] [place] [address] * EXT ThinPrep w/HPV Co-Test Screen (05/04/2017) [...] for FH and FDB is available through [place] [facility]: FH/ADH Genetic Reflex Panel (test ADHP). Acquired (non-genetic) causes of markedly increased LDL cholesterol include cholestatic liver disease due to the presence of LpX. If a genetic form of hypercholesterolemia is suspected, family studies including biochemical testing for lipids (total cholesterol,triglycerides, LDL cholesterol and HDL cholesterol) are recommended. ??Please contact the laboratory at or the on-line test catalog at [employer] for information about how to order these [...] images. Narrative 03/26/2012 5:29 PM CDT EXAM: [place] Mammo Screening w/ CADD INDICATION: mammo COMPARISON: None. FINDINGS: The breasts are heterogeneously dense. The medial inferior portion of the left breast is asymmetrically more dense than the corresponding region in the right breast. Nothing suspicious within either breast, however. Procedure Note Bogdan Millan M.D. / ProviderWilliam M.D. - 11/29/2016 EXAM: [place] Mammo Screening w/ CADD INDICATION: mammo COMPARISON: [...] performed on the digital mammogram images. Amadeo Valerio(R)(CT) IMG BI PROCE DURES from Last 3 Months or Most Recently Relevant to Health Maintenance Care Teams Airborne Operations Relationship Specialty Start Date End Date Brock Valenzuela D.O. [address] [place] [phone] PCP - General Internal Medicine 12/19/19
--- OUTSIDE RECORDS SUMMARY | 2023-11-02 10:50 | XMS_ITS | Encounter Summary ---
Author Name Unknown Organization [facility] Address [address] [place] [address] Care Team Providers Care Cake Mixer Name Role Phone Brock Valenzuela D.O. Primary Care Provide r Encounter Details Date Type Department Care Team (Latest Contact Info) Description 10/08/2023 9:08 AM CDT - 10/08/2023 11:59 PM CDT Hospital Encounter Department of Laboratory Medicine in [place], [place] [address] [place] [address] Kelley Ruiz D.O. [address] [place] [address] Diarrhea Discharge Disposition: Home or Self Care Social [...] How often do you attend chur or taoism services? More than 4 times per year 02/26/2022 Do you belong to any clubs o r organizations such as voodoo groups, unions, fraternal or athletic groups, or [...] Answer Date Recorded PHQ-2 Score 0 07/13/2022 [facility] Occupat ional Health - Occupational Stress [...] place to sleep or slept in a assisted (including now)? No 02/26/2022 Nutrition Answer Date [...] 10/08/2023 10/11/2023 documented as of this encounter Miscellaneous Notes * Result Encounter Note - Jessica Quiroz M.D. - 10/10/2023 7:15 PM CDT Fecal calprotectin elevated but this is just a marker of inflammation and likely is due to the campylobacter infection she has. * Result Encounter Note - Katerina San M.D. - 10/09/2023 4:26 PM CDT Heme Stool neg * Result Encounter Note - Katerina San M.D. - 10/08/2023 6:26 PM CDT Patient notified of Positive Campylobacter in Stool, Has diarrheal stools every hour with worseninglast 1-2 days, no nausea or vomiting. Advised about Self limiting nature of illness, observation with emphasis on hydration vs antibiotic. 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 Advised to avoid dairy x 4 weeks, add a probiotic once a day and notify / seek in-person care if worse at any time. documented in this encounter Plan of Treatment Not on file documented as of this encounter Procedures Procedure Name Priority Date/Time Associated Diagnosis Comments FAT, F Routine 10/08/2023 11:30 AM CDT Diarrhea GI PATHOGEN PANEL, PCR, F Routine 10/08/2023 9:50 AM CDT Diarrhea HEMOQUANT, F Routine 10/08/2023 9:50 AM CDT Diarrhea CALPROTECTIN, F Routine 10/08/2023 9:50 AM CDT Diarrhea documented in this encounter Results * Fat, Feces (10/08/2023 11:30 AM CDT) [...] developed and its performance characteristics determined by [facility] in a manner consistent with CLIA requirements. This test has not been cleared or approved by the U.S. Food and Drug Administration. Stool (Stool) 10/08/2023 11: 30 AM CDT 10/09/2023 8:13 AM CDT Kelley Ruiz D.O. LAB BODY FLUIDS AND STOOLS ORDERABLES [facility] [address] [place] [address], [facility] [address] [place] [address] * (ABNORMAL) Calprotectin, Feces (10/08/2023 9:50 AM CDT) Calprotectin, F 1599(H) <50.0 (Normal) mcg/g 10/10/2023 4:38 PM CDT [facility] Comment:Interpretation: Abno rmal (>120 mcg/g) Stool (Stool) 10/08/2023 9:5 0 AM CDT 10/10/2023 12:53 PM CDT Kelley Ruiz D.O. LAB BODY FLUIDS AND STOOLS ORDERABLES Performing Organization Address [facility] Co de Phone Number [facility] [address] [place] [address] [facility] [address] [place] [address] * HemoQuant, Feces (10/08/2023 9:50 AM CDT) Hemoglobin, Fecal <0.3 <=2 mg Hb/g 10/09/2023 3:47 PM CDT DTL Comment: ----ADDITIONAL INFORMATION---- This test was developed and its performance characteristics determined by [facility] in a manner consistent with CLIA requirements. This test has not been cleared or approved by the U.S. Food and Drug Administration. Stool (Stool) 10/08/2023 9:5 0 AM CDT 10/09/2023 8:08 AM CDT Kelley Ruiz D.O. LAB BODY FLUIDS AND STOOLS ORDERABLES Performing Organization Address [facility] Co de Phone Number [facility] [address] [place] [address], [facility] DTL [address] [facility] [address] [place] [address] * (ABNORMAL) GI Pathogen Panel, PCR, Feces [...] This assay is performed using the FDA-cleared FilmArray GI Panel ([employer] Semi-Urgent This is a semi-urgent result(RODRIGUEZ) [facility] Stool (Stool) 10/08/2023 9:5 0 AM CDT 10/08/2023 2:42 PM CDT Kelley Ruiz D.O. LAB MICROBIOLOGY - GENERAL ORDERABLES [facility] [address] [place] [address], [facility] AUST [address] [place] [address] documented in this encounter Visit Diagnoses Diagnosis Diarrhea documented in this encounter Care Teams Cake Mixer Relationship Specialty Start Date End Date Brock Valenzuela D.O. [address] [place] [phone] PCP - General Internal Medicine 12/19/19 documented as of this encounter
--- OUTSIDE RECORDS SUMMARY | 2023-11-02 10:50 | XMS_ITS | Encounter Summary ---
Author Name Unknown Organization [facility] Address [address] [place] [address] Care Team Providers Care Qa Automation Architect Name Role Phone Brock Valenzuela D.O. Primary Care Provide r Reason for Visit * Reason Comments Diarrhea Encounter Details Date Type Department Care Team (Late st Contact Info) Description 10/08/2023 7:30 AM CDT Telemedicine Primary Care on Demand at [facility] [address] [place] [address] Kelley Ruiz D.OLeighton [address] [place] [address] Diarrhea (Primary Dx) Social History Tobacco Use Types Packs/Day Years [...] week 02/26/2022 How often do you attend [facility] or latter day services? More than 4 times per year [...] Answer Date Recorded PHQ-2 Score 0 07/13/2022 [facility] Occupat ional Health - [...] AM CDT documented as of this encounter Progress Notes * Kelley Ruiz, D.O. - 10/08/2023 7:30 AM CDT DATE OF VISIT: 10/08/2023 SUBJECTIVE CHIEF COMPLAINT / REASON FOR VISIT Bonnie Farmer is a 53 y.o. female who presents for evaluation of Diarrhea. HISTORY OF PRESENT ILLNESS Reports frequent, watery diarrhea for 4 days. She is stooling almost every 15 minutes. Last night she went 3 hours between stools but that is by far the longest she has gone between stools in the last 4 days. She does have IBS and is used to having diarrhea. But this is different, it came on out of nowhere and it is super sour smelling. Is having a lot of gas all the time. She has tried Gas-X and it isn't helping. Denies blood in the stools. Started out loose and is now just watery with small amounts of stool mixed in. Everything she eats or drinks comes right out. The stools do not seem fatty. She does have nausea. She is able to keep down liquids but they trigger stooling as well. She does use miralax for constipation a couple times a week at baseline but has not taken it since the diarrhea began. She has had a colonoscopy, reports several polyps were found and she just got a reminder she is duefor rescreening. Mother has colon polyps but no family history of colon cancer. Her doctor's said to avoid immodium because of her constipation with her IBS. 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 She has taken maalox. Has zantac but hasn't taken it. She believes her nausea is related to acid reflux. REVIEW OF SYSTEMS No sick contacts No change in diet No new supplements No new medications No recent travel No exposure to bodies of water No recent hospitalization The following portions of the patient's history were reviewed and updated as appropriate: Tobacco Allergies Meds Problems Med Hx Surg Hx Fam Hx OBJECTIVE VITAL SIGNS There were no vitals taken for this visit. PHYSICAL EXAM Constitutional General: She is not in acute distress. Appearance: Normal appearance. HENT Head: Normocephalic and atraumatic. Eyes Extraocular Movements: Extraocular movements intact. Pulmonary Effort: Pulmonary effort is normal. Breath sounds: No wheezing. Neurological General: No focal deficit present. Mental Status: She is alert and oriented to person, place, and time. Psychiatric Mood and Affect: Mood normal. Behavior: Behavior normal. Thought Content: Thought content normal. Judgment: Judgment normal. ASSESSMENT / PLAN #1 Diarrhea - GI Pathogen Panel, PCR, Feces; Future; Expected date: 10/08/2023 - HemoQuant, Feces; Future; Expected date: 10/08/2023 - Fat, Feces; Future; Expected date: 10/08/2023 - Calprotectin, Feces; Future; Expected date: 10/08/2023 Other orders - loperamide (IMODIUM A-D) 2 mg capsule; Take 1 capsule (2 mg total) by mouth 4 (four) times a day as needed for diarrhea., Starting 10/08/2023, Normal Concern for infectious etiology based on watery nature, frequency of stools, and foul odor. C. Diffis on differential. She has no risk factors for ksenia C. Diff or other infectious etiology, however. She is unable to return to work due to the frequency of stooling (every 15 min on average). Will order stool testing for C. Diff, other infectious etiologies, as well as IBD markers due to the current severity of symptoms. She will contact her local [facility] lab to make sure they have the orders and get her testing supplies and instructions assembled for her. Will also have her try loperamide for temporary relief. May take the zantac she has on hand for acid reflux. Continue bland diet as tolerated and continue to push water. Avoid caffeinated or sugary beverages. Will contact patient with stool results as they return. Advised to reach back to OD if she develops fever, vomiting, or blood in the stools. Consult conducted via real-time audio/video technology by Kelley Ruiz D.O. in [facility], Primary Care On Demand to the patient in Patient's Home INFORMED CONSENT The risks and benefits of the current and proposed medications were reviewed, including but not limited to the common side effects. The patient was informed of alternative treatments, the consequences of no treatment, and the expected duration of treatment. The patient appeared to appreciate the information conveyed in the consent process by asking appropriate questions and expressing understanding of these potential risks and benefits. The patient understood and agreed to the plan. documented in this encounter Plan of Treatment Not on file documented as of this encounter Results * Fat, Feces (10/08/2023 [...] developed and its performance characteristics determined by [facility] in a manner consistent with CLIA requirements. This test has not been cleared or approved by the U.S. Food and Drug Administration. Stool (Stool) 10/08/2023 11: 30 AM CDT 10/09/2023 8:13 AM CDT Kelley Ruiz D.O. LAB BODY FLUIDS AND STOOLS ORDERABLES Performing Organization Address City/[facility]/ZIP Co de Phone Number [facility] [address] [place] [address], [facility] [address] [place] [address] * (ABNORMAL) Calprotectin, Feces (10/08/2023 9:50 AM CDT) Pathologist [facility] Calprotectin, F 1599(H) <50.0 (Normal) mcg/g 10/10/2023 4:38 PM CDT [facility] Comment:Interpretation: Abno rmal (>120 mcg/g) Stool (Stool) 10/08/2023 9:5 0 AM CDT 10/10/2023 12:53 PM CDT Kelley Ruiz D.O. LAB BODY FLUIDS AND STOOLS ORDERABLES [facility] [address] [place] [address] [facility] [address] [place] [address] * HemoQuant, Feces (10/08/2023 9:50 AM CDT) Hemoglobin, Fecal <0.3 <=2 mg Hb/g 10/09/2023 3:47 PM CDT [facility] Comment: ----ADDITIONAL INFORMATION---- This test was developed and its performance characteristics determined by [facility] in a manner consistent with CLIA requirements. This test has not been cleared or approved by the U.S. Food and Drug Administration. Stool (Stool) 10/08/2023 9:5 0 AM CDT 10/09/2023 8:08 AM CDT Kelley Ruiz D.O. LAB BODY FLUIDS AND STOOLS ORDERABLES [facility] [address] [place] [address], [facility] DTL [address] [facility] [address] [place] [address] * (ABNORMAL) GI Pathogen Panel, PCR, Feces (10/08/2023 9:50 AM CDT) Pathologist [facility] Specimen Source STOOL 5:20 PM CDT AUST [...] CDT AUST Norovirus GI/GII Negative Negative 10/08/19 24 5:20 PM CDT [facility] Rotavirus Ag, F Negative Negative 5:20 PM CDT [facility] Sapovirus Negative Negative 10/08/2023 5:20 PM CDT [facility] Comment: ----ADDITIONAL INFORMATION---- This assay is performed using the FDA-cleared [employer] Research[employer] GI Panel ([facility] Semi-Urgent This is a semi-urgent result(RODRIGUEZ) [facility] Stool (Stool) 10/08/2023 9:5 0 AM CDT 10/08/2023 2:42 PM CDT Kelley Ruiz D.O. LAB MICROBIOLOGY - GENERAL ORDERABLES [facility] [address] [place] [address], [facility] AUST [address] [place] [address] documented in this encounter Visit Diagnoses Diagnosis Diarrhea- Primary documented in this encounter Care Teams Qa Automation Architect Relationship Specialty Start Date End Date Brock Valenzuela D.O. [address] [place] [phone] PCP - General Internal Medicine 12/19/19 documented as of this encounter
--- OUTSIDE RECORDS SUMMARY | 2023-11-02 10:50 | XMS_ITS | Encounter Summary ---
Author Name Unknown Organization [facility] Address [address] [place] [address] Care Team Providers Care Washateria Attendant Name Role Phone Brock Valenzuela D.O. Primary Care Provide r Encounter Details Date Type Department Care Team (Late st Contact Info) Description 10/08/2023 Documentation Department of Family Medicine, [facility], in [place], [place] [address] [place] [phone] South Segovia M.D. [address] [place] [phone] Social History Tobacco Use Types Packs/Day Years [...] How often do you attend chur or mosque services? More than 4 times per year 02/26/2022 Do you belong to any clubs o r organizations such as holiness groups, unions, fraternal or athletic groups, or [...] Answer Date Recorded PHQ-2 Score 0 07/13/2022 [facility] Occupat ional Health - Occupational [...] place to sleep or slept in a long term (including now)? No 02/26/2022 Nutrition Answer Date [...] as of this encounter Progress Notes * [place] Segovia M.D. - 10/08/2023 5:47 PM CDT Patient with Campylobacter noted on GI pathogen panel. To be addressed by primary provider documented in this encounter Plan of Treatment Not on file documented as of this encounter Visit Diagnoses Not on filedocumented in this encounter Care Teams Washateria Attendant Relationship Specialty Start Date End Date Brock Valenzuela D.O. [address] [place] [phone] PCP - General Internal Medicine 12/19/19 documented as of this encounter
--- NOTE | 2023-11-02 12:08 | W.ANESCHARGE ---
Anesthesia Charges Start Date/Time Anesthesia Start Date: 11/02/23 Anesthesia Start Time: 11:50 Stop Date/Time Anesthesia Stop Date: 11/02/23 Anesthesia Stop Time: 12:10
--- NOTE | 2023-11-02 13:29 | W.ANESCHARGE ---
Anesthesia Charges Start Date/Time Anesthesia Start Date: 11/02/23 Anesthesia Start Time: 11:50 Stop Date/Time Anesthesia Stop Date: 11/02/23 Anesthesia Stop Time: 12:10
== END 2023-11-02 10:46 | disposition home or self-care (01) ==
LOC: OP CLINIC 10:47
PROVIDERS: PCP Family Medicine; Visit Provider Internal Medicine
DX: Z86.010 Personal history of colon polyps (principal); K64.8 Other hemorrhoids
CPT/HCPCS: 00812; 45378; J2704

== ENCOUNTER 2024-02-06 08:25 | Outpatient (CLI) | payer BC, SELFPAY ==
--- OUTSIDE RECORDS SUMMARY | 2024-02-06 08:30 | XMS_ITS | Referral Summary ---
Author Organization [facility] Address [address] [place] [address] Care Team Providers Care Gas Golf Cart Repairer Name Role Phone Brock Valenzuela D.O. Primary Care Provide r Source Comments Patient records contain information from all sites at [facility]. For routine questions regarding patient records, call [phone] during business hours, M-F 8:00 AM - 5:00 PM Central Time. Record requests for emergency care only can be directed to [phone] at any time.[facility] Allergies Active Allergy Reactions Criticality Noted Date [...] needed for diarrhea. 30 capsule 10/08/2023 Active Active Problems Problem Noted Date Diagnosed [...] week 02/26/2022 How often do you attend [facility] or moravian services? More than 4 times per year [...] Answer Date Recorded PHQ-2 Score 0 07/13/2022 [facility] of Occupat ional Health - Occupational Stress [...] Comments Blood Pressure 133/80 07/13/2022 8:21 AM UTILITY WORKER PRODUCTION Pulse 80 07/13/2022 8:21 AM UTILITY WORKER PRODUCTION Temperature 36.1 ??C (97 ??F) 07/13/2022 8:21 AM UTILITY WORKER PRODUCTION Respiratory Rate 18 07/13/2022 8:21 AM UTILITY WORKER PRODUCTION Oxygen Saturation 99% 07/13/2022 8:21 AM UTILITY WORKER PRODUCTION Inhaled Oxygen Concentration - - Weight 75.8 kg (167 lb 1.7 oz) 07/13/2022 8:21 A M UTILITY WORKER PRODUCTION Height 166 cm (5' 5.35) 07/13/2022 8:21 AM UTILITY WORKER PRODUCTION Body Mass Index 27.51 07/13/2022 8:21 AM UTILITY WORKER PRODUCTION Plan of Treatment Not on file Procedures Procedure Name Priority Date/Time Associated Diagnosis Comments RENAL FUNCTION PANEL, S Routine 07/13/2022 9:16 AM UTILITY WORKER PRODUCTION Preoperative Exam EXT THINPREP W/HPV CO-TEST SCREEN Routine 05/04/2017 LIPID PANEL, S Routine 09/28/2015 7:55 AM CDT BI BREAST SCREENING BILATERAL Routine 03/26/2012 7:33 AM CDT from Last 3 Months or Most Recently Relevant to Health Maintenance Results * (ABNORMAL) Renal Function Panel (07/13/2022 9:16 AM UTILITY WORKER PRODUCTION) Potassium, P 4.9 3.6 - 5.2 mmol/L 07/13/2022 9:48 AM UTILITY WORKER PRODUCTION OWAT Sodium, P 141 135 - 145 mmol/L 07/13/2022 9:48 AM UTILITY WORKER PRODUCTION OWAT Chloride, P 103 98 - 107 mmol/L 07/13/2022 9:48 AM UTILITY WORKER PRODUCTION OWAT Bicarbonate, P 30(H) 22 - 29 mmol/L 07/13/2022 9:48 AM UTILITY WORKER PRODUCTION OWAT Anion Gap, P 8 7 - 15 07/13/2022 9:48 AM UTILITY WORKER PRODUCTION OWAT BUN (Blood Urea Nitrogen), P 15 6 - 21 mg/dL 07/13/2022 9:48 AM UTILITY WORKER PRODUCTION OWAT Creatinine 0.68 0.59 - 1.04 mg/dL 07/13/2022 9:48 AM UTILITY WORKER PRODUCTION OWAT Estimated GFR (eGFR) >90 >=60 mL/min/BSA 07/13/2022 9:48 AM UTILITY WORKER PRODUCTION OWAT Comment: Estimated GFR calculated using the 2020 CKD_EPI creatinine equation. Calcium, Total, P 9.3 8.6 - 10.0 mg/dL 07/13/2022 9:48 AM UTILITY WORKER PRODUCTION OWAT Glucose, P 89 70 - 140 mg/dL 07/13/2022 9:48 AM UTILITY WORKER PRODUCTION OWAT Albumin, P 4.4 3.5 - 5.0 g/dL 07/13/2022 9:48 AM UTILITY WORKER PRODUCTION OWAT Phosphorus (Inorganic), P 2.5 2.5 - 4.5 mg/dL 07/13/2022 4:22 PM UTILITY WORKER PRODUCTION AUST Blood (Blood, Venous) 07/13/2022 9:16 AM UTILITY WORKER PRODUCTION 07/13/2022 9:24 AM UTILITY WORKER PRODUCTION Narrative [facility] - 07/13/2022 4:22 PM UTILITY WORKER PRODUCTION Specimen Information: Specimen ID: [id number] Specimen Type: Blood Specimen Collection Start Date: 07/13/2022 ??9:16 AM Specimen Received Date: 07/13/2022 ??9:24 AM Specimen ID: [id number] Specimen Type: Blood Specimen Collection Start Date: 07/13/2022 ??9:16 AM Specimen Received Date: 07/13/2022 ??3:57 PM Brock Valenzuela D.O. LAB BLOOD ADD -ON [facility] [address] [place] [address], [facility] [place] [address] [place] [address] AUST [facility] [address] [place] [address] * EXT ThinPrep w/HPV Co-Test Screen (05/04/2017) [...] for FH and FDB is available through [employer]: FH/ADH Genetic Reflex Panel (test ADHP). Acquired (non-genetic) causes of markedly increased LDL cholesterol include cholestatic liver disease due to the presence of LpX. If a genetic form of hypercholesterolemia is suspected, family studies including biochemical testing for lipids (total cholesterol,triglycerides, LDL cholesterol and HDL cholesterol) are recommended. ??Please contact the laboratory at or the on-line test catalog at [employer] for information about how to order these [...] POWERCHART Blood 09/28/2015 7:55 AM CDT Eugene E Bunkers M.D. LAB BLOOD ADD-ON POWERCHART * BI [...] images. Narrative 03/26/2012 5:29 PM CDT EXAM: CT Mammo Screening w/ CADD INDICATION: mammo COMPARISON: None. FINDINGS: The breasts are heterogeneously dense. The medial inferior portion of the left breast is asymmetrically more dense than the corresponding region in the right breast. Nothing suspicious within either breast, however. Procedure Note Bogdan Millan M.D. / William Juan M.D. - 11/29/2016 EXAM: CT Mammo Screening w/ CADD INDICATION: mammo COMPARISON: [...] Recently Relevant to Health Maintenance Care Teams Gas Golf Cart Repairer Relationship Specialty Start Date End Date Brock Valenzuela D.O. [address] [phone] PCP - General Internal Medicine 12/19/19
--- OUTSIDE RECORDS SUMMARY | 2024-02-06 08:30 | XMS_ITS | Clinical Summary ---
Author Organization [facility] Address [address] [place] [address] Care Team Providers Care Fur Grader Name Role Phone Brock Valenzuela D.O. Primary Care Provide r Source Comments Patient records contain information from all sites at [facility]. For routine questions regarding patient records, call [phone] during business hours, M-F 8:00 AM - 5:00 PM Central Time. Record requests for emergency care only can be directed to [phone] at any time.[facility] Allergies Active Allergy Reactions Criticality Noted Date [...] Father's Sister Rere Carreno Colon polyps Mother Nettie Klein Diabetes Mother's Sister Huma Palacios Coronary artery disease Paternal Grandfather Gene Jose ch Coronary artery disease Paternal Grandmother Rebekah B udach Relation Name Status Comments Brother Bandar Katz Father Pedro Katz Father's Sister Rere Carreno Mother Nettie Littlejohna Mother's Sister Huma Palacios Paternal Grandfather Gene [...] How often do you attend chur or mandaeism services? More than 4 times per year 02/26/2022 Do you belong to any clubs o r organizations such as roman catholic groups, unions, fraternal or athletic groups, or [...] Answer Date Recorded PHQ-2 Score 0 07/13/2022 [facility] of Occupat ional Health - [...] place to sleep or slept in a intermediate (including now)? No 02/26/2022 Nutrition Answer Date [...] Comments Blood Pressure 133/80 07/13/2022 8:21 AM ACID LEVELER Pulse 80 07/13/2022 8:21 AM ACID LEVELER Temperature 36.1 ??C (97 ??F) 07/13/2022 8:21 AM ACID LEVELER Respiratory Rate 18 07/13/2022 8:21 AM ACID LEVELER Oxygen Saturation 99% 07/13/2022 8:21 AM ACID LEVELER Inhaled Oxygen Concentration - - Weight 75.8 kg (167 lb 1.7 oz) 07/13/2022 8:21 A M ACID LEVELER Height 166 cm (5' 5.35) 07/13/2022 8:21 AM ACID LEVELER Body Mass Index 27.51 07/13/2022 8:21 AM ACID LEVELER Plan of Treatment Health Maintenance Due Date Last Done Comments CT Colonography 1970 Cologuard 1970 Colonoscopy 1970 Colorectal Cancer Surveillance 1970 HIV Screening 1970 Hepatitis C Screening 1970 Hepatitis B Vaccines (1 of 3 - 19+ 3-dose series) 1989 Mammogram 03/26/2013 03/26/2012 Lipid (Cholesterol) Screening 09/27/2020 09/28/2015, 09/27/2013, 04/02/2012 COVID-19 Vaccine ( season) 2023 05/26/2021, 09/10/2020, 08/10/2020 Depression Screening (Annual PHQ-2) 07/09/2023 Influenza Vaccine (#1) 2024 , 05/26/2021, 04/28/2020, Additional history exists Cervical Cancer Screening 12/23/20242021, 05/04/2017, 05/04/2017, Additional [...] FUNCTION PANEL, S Routine 07/13/2022 9:16 AM ACID LEVELER Preoperative Exam EXT THINPREP W/HPV CO-TEST SCREEN Routine 05/04/2017 LIPID PANEL, S Routine 09/28/2015 7:55 AM CDT BI BREAST SCREENING BILATERAL Routine 03/26/2012 7:33 AM CDT from Last 3 Months or Most Recently Relevant to Health Maintenance Results * (ABNORMAL) Renal Function Panel (07/13/2022 9:16 AM ACID LEVELER) Potassium, P 4.9 3.6 - 5.2 mmol/L 07/13/2022 9:48 AM ACID LEVELER OWAT Sodium, P 141 135 - 145 mmol/L 07/13/2022 9:48 AM ACID LEVELER OWAT Chloride, P 103 98 - 107 mmol/L 07/13/2022 9:48 AM ACID LEVELER OWAT Bicarbonate, P 30(H) 22 - 29 mmol/L 07/13/2022 9:48 AM ACID LEVELER OWAT Anion Gap, P 8 7 - 15 07/13/2022 9:48 AM ACID LEVELER OWAT BUN (Blood Urea Nitrogen), P 15 6 - 21 mg/dL 07/13/2022 9:48 AM ACID LEVELER OWAT Creatinine 0.68 0.59 - 1.04 mg/dL 07/13/2022 9:48 AM ACID LEVELER OWAT Estimated GFR (eGFR) >90 >=60 mL/min/BSA 07/13/2022 9:48 AM ACID LEVELER OWAT Comment: Estimated GFR calculated using the 2020 CKD_EPI creatinine equation. Calcium, Total, P 9.3 8.6 - 10.0 mg/dL 07/13/2022 9:48 AM ACID LEVELER OWAT Glucose, P 89 70 - 140 mg/dL 07/13/2022 9:48 AM ACID LEVELER OWAT Albumin, P 4.4 3.5 - 5.0 g/dL 07/13/2022 9:48 AM ACID LEVELER OWAT Phosphorus (Inorganic), P 2.5 2.5 - 4.5 mg/dL 07/13/2022 4:22 PM ACID LEVELER AUST Blood (Blood, Venous) 07/13/2022 9:16 AM ACID LEVELER 07/13/2022 9:24 AM ACID LEVELER Narrative [facility] - 07/13/2022 4:22 PM ACID LEVELER Specimen Information: Specimen ID: [id number] Specimen Type: Blood Specimen Collection Start Date: 07/13/2022 ??9:16 AM Specimen Received Date: 07/13/2022 ??9:24 AM Specimen ID: [id number] Specimen Type: Blood Specimen Collection Start Date: 07/13/2022 ??9:16 AM Specimen Received Date: 07/13/2022 ??3:57 PM Brock Valenzuela D.O. LAB BLOOD ADD -ON [facility] [address] [place] [address], [facility] OWAT [facility] in [place] [address] [place] [address] AUST [facility] - [facility] [address] [place] [address] * EXT ThinPrep w/HPV Co-Test Screen (05/04/2017) [...] for FH and FDB is available through [facility]: FH/ADH Genetic Reflex Panel (test ADHP). Acquired (non-genetic) causes of markedly increased LDL cholesterol include cholestatic liver disease due to the presence of LpX. If a genetic form of hypercholesterolemia is suspected, family studies including biochemical testing for lipids (total cholesterol,triglycerides, LDL cholesterol and HDL cholesterol) are recommended. ??Please contact the laboratory at or the on-line test catalog at [employer] for information about how to order these [...] images. Narrative 03/26/2012 5:29 PM CDT EXAM: [place] Mammo Screening w/ CADD INDICATION: mammo COMPARISON: None. FINDINGS: The breasts are heterogeneously dense. The medial inferior portion of the left breast is asymmetrically more dense than the corresponding region in the right breast. Nothing suspicious within either breast, however. Procedure Note Bogdan Millan M.D. / William Juan M.D. - 11/29/2016 EXAM: [place] Mammo Screening w/ CADD INDICATION: mammo COMPARISON: [...] Recently Relevant to Health Maintenance Care Teams Fur Grader Relationship Specialty Start Date End Date Brock Valenzuela D.O. [address] [phone] PCP - General Internal Medicine 12/19/19
--- OUTSIDE RECORDS SUMMARY | 2024-02-06 08:30 | XMS_ITS | Referral Summary ---
Author Organization [place] Address [address] [place] [address] Care Team Providers Care Marine Structural Designer Name Role Phone [facility], [facility] Primary Care Provider Allergies Active Allergy Reactions [...] Comments Blood Pressure 129/85 07/17/2022 9:47 AM CYBER INCIDENT RESPONDER Pulse 60 07/17/2022 9:47 AM CYBER INCIDENT RESPONDER Temperature 36.6 ??C (97.8 ??F) 07/17/2022 9:47 AM CS T Respiratory Rate 14 07/17/2022 9:47 AM CYBER INCIDENT RESPONDER Oxygen Saturation 99% 07/17/2022 9:47 AM CYBER INCIDENT RESPONDER Inhaled Oxygen Concentration - - Weight 75.2 kg (165 lb 11.2 oz) 07/17/2022 6:15 AM CYBER INCIDENT RESPONDER Height 165.1 cm (5' 5) 07/17/2022 6:15 AM CYBER INCIDENT RESPONDER Body Mass Index 27.57 07/17/2022 6:15 AM CYBER INCIDENT RESPONDER Plan of Treatment Not on file Procedures Procedure Name Priority Date/Time Associated Diagnosis Comments GLUCOSE (EXTERNAL RESULT) Routine 07/13/2022 9:16 AM CYBER INCIDENT RESPONDER from Last 3 Months or Most Recently Relevant to Health Maintenance Results * Glucose (External Result) (07/13/2022 9:16 AM CYBER INCIDENT RESPONDER) Glucose (External) 89 70 - 140 mg/dL BRAVO Abdi VELÁSQUEZ Blood 07/13/2022 9:16 AM CYBER INCIDENT RESPONDER Narrative LAWRENCE VELÁSQUEZ - 07/13/2022 9:16 AM CYBER INCIDENT RESPONDER Care Everywhere, [facility] Provider Outside LAB - HIM EXTERNAL R ESULT LAWRENCE VELÁSQUEZ [address] [place] [address], [facility] [phone] from Last 3 Months or Most Recently Relevant to Health Maintenance Care Teams Marine Structural Designer Relationship Specialty Start Date End Date Clinic, [address] [address] PCP - General 07/17/22
--- OUTSIDE RECORDS SUMMARY | 2024-02-06 08:30 | XMS_ITS | Clinical Summary ---
Author Organization [facility] Address [address] [place] [address] Care Team Providers Care Lining Stamper Name Role Phone [facility], [facility] Primary Care Provider Allergies Active Allergy [...] Comments Blood Pressure 129/85 07/17/2022 9:47 AM FARMWORKER RICE Pulse 60 07/17/2022 9:47 AM FARMWORKER RICE Temperature 36.6 ??C (97.8 ??F) 07/17/2022 9:47 AM CS T Respiratory Rate 14 07/17/2022 9:47 AM FARMWORKER RICE Oxygen Saturation 99% 07/17/2022 9:47 AM FARMWORKER RICE Inhaled Oxygen Concentration - - Weight 75.2 kg (165 lb 11.2 oz) 07/17/2022 6:15 AM FARMWORKER RICE Height 165.1 cm (5' 5) 07/17/2022 6:15 AM FARMWORKER RICE Body Mass Index 27.57 07/17/2022 6:15 AM FARMWORKER RICE Plan of Treatment Health Maintenance Due Date [...] 1989 PAP 1991 LIPID 2010 COVID-19 Vaccine ( - 2022-24 season) 2023 05/26/2021, 09/10/2020, 08/10/2020 PHQ-2 (once per calendar year) 2023 INFLUENZA VACCINE (#1) 2024 , 04/28/2020, 07/04/2019, Additional history exists GLUCOSE 07/13/2025 07/13/2022 DTAP/TDAP/TD IMMUNIZATION (4 - [...] GLUCOSE (EXTERNAL RESULT) Routine 07/13/2022 9:16 AM FARMWORKER RICE from Last 3 Months or Most Recently Relevant to Health Maintenance Results * Glucose (External Result) (07/13/2022 9:16 AM FARMWORKER RICE) Glucose (External) 89 70 - 140 mg/dL LAWRENCE VELÁSQUEZ Blood 07/13/2022 9:16 AM FARMWORKER RICE Narrative [place] Abdi WANGElliott - 07/13/2022 9:16 AM FARMWORKER RICE Care Everywhere, [facility] Provider Outside LAB - HIM EXTERNAL R ESULT LAWRENCE WANGElliott [address] [place], [place] [address] [address], [facility] [phone] from Last 3 Months or Most Recently Relevant to Health Maintenance Care Teams Lining Stamper Relationship Specialty Start Date End Date Clinic, [facility] [address] [place] [address] PCP - General 07/17/22
--- OUTSIDE RECORDS SUMMARY | 2024-02-06 08:30 | XMS_ITS | Clinical Summary ---
Author Organization [facility] Address [address] [address] Care Team Providers Care Watershed Tender Name Role Phone Lavell Logan MD Primary Care Provider + Source Comments You are receiving this document as you are listed as the primary care provider,follow-up provider, or the patient has been referred to you for consultation.This is in compliance with the Medicare andVeterans Health Administrationcaid EHR Incentive Program,which states Providers who transition their patient to another setting of careor provider of care or refers their patient to another provider of care shouldprovide summary care record for each transition of care or referral. [facility] Allergies Active Allergy Reactions Criticality Noted Date [...] Dates Next Due Influenza IIV4 (Quadrivalent) 0.5mL (44399) 04/09 Social History Tobacco Use Types Packs/Day [...] - 2022-2 4 season) 2023 Influenza (#1) 2024 04/28/2016 HIV Screening (Preventive Services) Completed 10/06/2016 [...] - 10/06/2016 7:36 PM CDT Performed at [facility], [address] [place] [address] CLIA number [id number] Shari Sommers MD LAB_1 Performing Organization Address [facility] de Phone Number PN SOFT [address] [place] [address] * HCAB - Hepatitis C Virus Ade with Reflex In-House (10/06/2016 2:52 PM CDT) Hepatitis C Antibody Nonreactive Nonreactive PN SOFT 10/06/2016 2:52 PM CDT 10/06/2016 6:42 PM CDT Narrative PN SOFT - 10/06/2016 7:36 PM CDT Performed at [facility], [address] [place] [address] CLIA number [id number] Shari Sommers MD LAB_1 Performing Organization Address [facility] de Phone Number PN SOFT [address] [place] [address] from Last 3 Months or Most Recently Relevant to Health Maintenance Care Teams Watershed Tender Relationship Specialty Start Date End Date Lavell Logan MD [address] [facility] [place] [phone] PCP - General Family Practice 10/06/16
--- OUTSIDE RECORDS SUMMARY | 2024-02-06 08:30 | XMS_ITS ---
Author Organization [facility] Address [address] [place] [address] Care Team Providers Care Telephone Plant Power Operator Name Role Phone Unavailable Unavailable Unavailable Surgery Details Not on file Complications Check Surgery Details section. Procedure Estimated Blood Loss Check Surgery Details section. Procedure Findings Check Surgery Details section. Procedure Specimens Taken Check Surgery Details section.
--- OUTSIDE RECORDS SUMMARY | 2024-02-06 08:30 | XMS_ITS | Clinical Summary ---
Author Organization [facility] Address [place], [place] [address] Care Team Providers Care Shell Trim Tool Setter Name Role Phone Lavell Logan MD Primary Care Provide r Allergies Active Allergy Reactions Criticality Noted Date Comments Penicillins Throat Swelling/Closing High 11/16/2016 Medications Medication Sig Dispensed Refills Start Date End Date Status fexofenadine-pseudoe phedrine, 180-240 MG, (AKIKO-D) 180-240 mg per tablet Take 1 tablet by mouth once daily. 0 11/16/2016 Active sertraline (ZOLOFT) 50 mg tablet Take 1 tablet by mouth once daily. Takes 1 1/2 tabs per day. To equal 75mg 0 11/16/2016 Active CPAP 1 unit 11/16/2016 Active methylPREDNISolone (MEDROL, TANNER,) 4 mg tabletIndications:Ac huslia sinusitis, recurrence not specified, unspecified location,Seasonal allergic rhinitis, unspecified allergic rhinitis trigger Take by mouth as instructed per packaging. 1 Package 11/16/2016 Active Active Problems No known active problems Social History Tobacco Use Types Packs/Day Years [...] Procedure Name Priority Date/Time Associated Diagnosis Comments HPV THIN PREP Routine 12/23/2021 11:00 AM CDT from Last 3 Months or Most Recently Relevant to Health Maintenance Results * HPV HIGH RISK (12/23/2021 11:00 AM CDT) TYPE 16 Negative Negative 12/27/2021 4:59 PM CDT [facility] TYPE 18 Negative Negative 12/27/2021 4:59 PM CDT [facility] OTHER HIGH RISK TYPES Negative Negative 12/27/2021 4:59 PM CDT [facility] Other (Cervical/Vagina l) 12/23/2021 11:00 AM CDT 12/26/2021 10:43 AM CDT Narrative [facility] - 12/27/2021 4:59 PM CDT HPV types 16, 18, 31, 33, 35, 39, 45, 51, 52, 56, 58, 59, 66 and 68 DNA were undetectable or below the pre-set threshold. Methodology: Andre Clary 4800 HPV Test October Brian [facility] [facility] [address] [place] [address], from Last 3 Months or Most Recently Relevant to Health Maintenance Care Teams Shell Trim Tool Setter Relationship Specialty Start Date End Date Lavell Logan MD [address] [facility] MIRA Soler [address] PCP - General Family Practice 09/22/13
--- OUTSIDE RECORDS SUMMARY | 2024-02-06 08:30 | XMS_ITS | Encounter Summary ---
Author Organization [facility] Address [address] [place] [address] Care Team Providers Care Inner Tube Cutter Name Role Phone Brock Valenzuela D.O. Primary Care Provide r Encounter Details Date Type Department Care Team (Late st Contact Info) Description 04/03/2022 Orders Only [facility] [address] [place] [phone] [facility], Provider Screening Test Laboratory Social History Tobacco [...] How often do you attend chur or quaker services? More than 4 times per year 02/26/2022 Do you belong to any clubs o r organizations such as mandaen groups, unions, fraternal or athletic groups, or [...] Answer Date Recorded PHQ-2 Score 0 11/28/2019 [facility] - Occupational Stress Questionnaire Answer Date Recorded [...] place to sleep or slept in a penitentiary (including now)? No 02/26/2022 Nutrition Answer Date [...] documented as of this encounter Care Teams Inner Tube Cutter Relationship Specialty Start Date End Date Brock Valenzuela D.O. [address] [place] [phone] PCP - General Internal Medicine 12/19/19 documented as of this encounter
--- OUTSIDE RECORDS SUMMARY | 2024-02-06 08:30 | XMS_ITS | Encounter Summary ---
Author Organization [facility] Address [address] [place] [address] Care Team Providers Care Glass Washer And Carrier Name Role Phone Brock Valenzuela D.O. Primary Care Provide r Encounter Details Date Type Department Care Team (Late st Contact Info) Description 10/08/2023 Clinical Communication Primary Care on Demand at [facility] [address] [place] [address] Kelley Ruiz D.O. [address] [place] [address] Social History Tobacco Use Types [...] How often do you attend chur or rastafari services? More than 4 times per year 02/26/2022 Do you belong to any clubs o r organizations such as rastafarian groups, unions, fraternal or athletic groups, or [...] Answer Date Recorded PHQ-2 Score 0 07/13/2022 [facility] Questionnaire Answer Date [...] place to sleep or slept in a halfway (including now)? No 02/26/2022 Nutrition Answer Date [...] on filedocumented in this encounter Care Teams Glass Washer And Carrier Relationship Specialty Start Date End Date Brock Valenzuela D.O. [address] [address] PCP - General Internal Medicine 12/19/19 documented as of this encounter
--- NOTE | 2024-02-06 08:45 | CRLHL7_ITS ---
For Patients: As a result of the Century Cures Act, medical imaging exams and procedure reports are released immediately into your electronic medical record. You may view this report before your referring provider. If you have questions, please contact your health care provider. BILATERAL SCREENING MAMMOGRAM WITH COMPUTER-AIDED DETECTION AND TOMOSYNTHESIS TECHNIQUE: CC and MLO views were obtained. These mammographic images have been obtained using full-field digital technique. These mammographic images were interpreted with the benefit of computer-aided detection. Breast Tomosynthesis was used in this interpretation. COMPARISON FILM: 01/16/23, 12/13/21, 09/03/20. FINDINGS: The breasts are heterogeneously dense, which may obscure small masses. IMPRESSION: There is no radiographic evidence for malignancy. ASSESSMENT: BI-RADS Category 2: Benign RECOMMENDATION: Routine screening mammogram in 1 year. A lay language report of this examination will be provided to the patient. Trevor Avalos M.D. Diagnostic Radiologist [email or web address] SP/Dictated by: Trevor Avalos MD @ 02/07/2024 10:55:00 AM (Electronically Signed)
== END 2024-02-06 08:26 | disposition home or self-care (01) ==
LOC: MAMMO 08:25
PROVIDERS: PCP Family Medicine; Visit Provider Family Medicine
DX: Z12.31 Encounter for screening mammogram for malignant neoplasm of breast (principal); R92.2 Inconclusive mammogram; Z00.00 Encounter for general adult medical examination without abnormal findings; E78.5 Hyperlipidemia, unspecified; R68.82 Decreased libido; Z79.1 Long term (current) use of non-steroidal anti-inflammatories (NSAID)
CPT/HCPCS: 77063; 77067; 80053; 80061

== ENCOUNTER 2024-04-01 10:06 | Outpatient (CLI) | payer BC, SELFPAY ==
--- OUTSIDE RECORDS SUMMARY | 2024-04-01 10:09 | XMS_ITS | Clinical Summary ---
Author Organization [facility] Address [address], [place] [address] Care Team Providers Care Director Public Service Name Role Phone Lavell Logan MD Primary Care Provider + Source Comments You are receiving this document as you are listed as the primary care provider,follow-up provider, or the patient has been referred to you for consultation.This is in compliance with the Medicare and[facility] Centercaid EHR Incentive Program,which states Providers who transition their patient to another setting of careor provider of care or refers their patient to another provider of care shouldprovide summary care record for each transition of care or referral. [facility] Allergies Active Allergy Reactions Criticality Noted Date [...] Dates Next Due Influenza IIV4 (Quadrivalent) 0.5mL (71729) 04/09 Social History Tobacco Use Types Packs/Day [...] Zoster/Shingles (1 of 2) 2020 COVID-19 Vaccine ( - 2023-2 5 season) 2024 Influenza (#1) 2024 04/28/2016 HIV Screening (Preventive [...] - 10/06/2016 7:36 PM CDT Performed at [facility], [address] [place] [address] CLIA number [id number] Shari Sommers MD LAB_1 Performing Organization Address [facility] de Phone Number PN SOFT [address] [place] [address] * HCAB - Hepatitis C Virus Ade with Reflex In-House (10/06/2016 2:52 PM CDT) Hepatitis C Antibody Nonreactive Nonreactive PN SOFT 10/06/2016 2:52 PM CDT 10/06/2016 6:42 PM CDT Narrative PN SOFT - 10/06/2016 7:36 PM CDT Performed at [facility], [address] [place] [address] CLIA number [id number] Shari Sommers MD LAB_1 Performing Organization Address [facility] de Phone Number PN SOFT [address] [place] [address] from Last 3 Months or Most Recently Relevant to Health Maintenance Care Teams Director Public Service Relationship Specialty Start Date End Date Lavell Logan MD [address] [facility] [place] [phone] PCP - General Family Practice 10/06/16
--- OUTSIDE RECORDS SUMMARY | 2024-04-01 10:09 | XMS_ITS | Referral Summary ---
Author Organization [facility] Address [address] [place] [address] Care Team Providers Care Sales Assistant Entertainment And Media Name Role Phone [facility], [facility] Primary Care Provider Allergies Active Allergy [...] Comments Blood Pressure 129/85 07/17/2022 9:47 AM LODGING FACILITIES MANAGER Pulse 60 07/17/2022 9:47 AM LODGING FACILITIES MANAGER Temperature 36.6 ??C (97.8 ??F) 07/17/2022 9:47 AM CS T Respiratory Rate 14 07/17/2022 9:47 AM LODGING FACILITIES MANAGER Oxygen Saturation 99% 07/17/2022 9:47 AM LODGING FACILITIES MANAGER Inhaled Oxygen Concentration - - Weight 75.2 kg (165 lb 11.2 oz) 07/17/2022 6:15 AM LODGING FACILITIES MANAGER Height 165.1 cm (5' 5) 07/17/2022 6:15 AM LODGING FACILITIES MANAGER Body Mass Index 27.57 07/17/2022 6:15 AM LODGING FACILITIES MANAGER Plan of Treatment Not on file Procedures Procedure Name Priority Date/Time Associated Diagnosis Comments GLUCOSE (EXTERNAL RESULT) Routine 07/13/2022 9:16 AM LODGING FACILITIES MANAGER from Last 3 Months or Most Recently Relevant to Health Maintenance Results * Glucose (External Result) (07/13/2022 9:16 AM LODGING FACILITIES MANAGER) Glucose (External) 89 70 - 140 mg/dL [facility] Abdi SOLER Blood 07/13/2022 9:16 AM LODGING FACILITIES MANAGER Narrative LAWRENCE SOLER - 07/13/2022 9:16 AM LODGING FACILITIES MANAGER Care Everywhere, [facility] Provider Outside LAB - HIM EXTERNAL R ESULT LAWRENCE SOLER [address] [place] [address], [facility] [phone] from Last 3 Months or Most Recently Relevant to Health Maintenance Care Teams Sales Assistant Entertainment And Media Relationship Specialty Start Date End Date Clinic, [address] [address] PCP - General 07/17/22
--- OUTSIDE RECORDS SUMMARY | 2024-04-01 10:09 | XMS_ITS | Clinical Summary ---
Author Organization [facility] Address [address] [place] [address] Care Team Providers Care Child Custody Evaluator Name Role Phone Brock Valenzuela D.O. Primary Care Provide r Source Comments Patient records contain information from all sites at [facility]. For routine questions regarding patient records, call [phone] during business hours, M-F 8:00 AM - 5:00 PM Central Time. Record requests for emergency care only can be directed to [phone] at any time.[facility] Allergies Active Allergy Reactions Criticality Noted Date [...] Encounters Date Type Department Care Team Description 02/12/2024 Orders Only [facility] P[facility] MNT Brock Valenzuela, DNoemi Screening Lipid 02/08/2024 Clinical Communication Department of Orthopedic Surgery in [place], [place] [address] [place] [address] Prescheduling, Provider Pre-scheduling Questionnaire ( Hip Questionnaire) 02/07/2024 [facility] [address] [place] [address] Tiffani Nair M.D. Pain Hip Right (Primary Dx); Osteoarthritis; Other Chronic Pain from Last 3 Months Immunizations Name Administration Dates Next Due DTaP (Infanrix, Tripedia) 10/09/2007 H1N1 All Forms 07/14/2009 H1N1 Inj 07/14/2009 Influenza Split 04/19/2006,06/25/2000,05/12/1999 Influenza, Injectable, Quadrivalent 04/28/2020 Influenza, Unspecified 04/22/2013,04/25/2010,07/2009 RZV (SHINGRIX) 02/28/2022,12/13/2021 SARS-COV-2 (COVID-19) - MODERNA(Discontinued) 05/26/2021 Tdap 07/03/2018,10/09/2007 influenza trivalent LAIV (Na josefa) (2 years through 49 years) 05/01/2011 influenza trivalent vaccine (6 months and older)(PF) 04/07/2009 influenza vaccine QV(FLUBLOK ) (18 years or older) (PF) 07/04/2019 influenza vaccine quad (FLUZONE/FLUARIX) (6 months and older)(PF) 05/26/2021,05/04/2017,04/28/2016,2014 Family History Medical History Relation Name Comments Hyperlipidemia Brother Bandar Katz Hypertension Brother Bandar Katz Clotting disorder Father Pedro Budach Coronary artery disease Father Pedro Budach Heart attack Father Pedro Budach Hyperlipidemia Father Pedro Budach Diabetes Father's Sister Rere Carreno Colon polyps Mother Nettie Latoya Diabetes Mother's Sister Huma Palacios Coronary artery disease Paternal Grandfather Gene Schenectady ch Coronary artery disease Paternal Grandmother Rebekah B udach Relation Name Status Comments Brother Bandar Katz Father Pedro Budach Father's Sister Rere Loganueger Mother Nettie Latoya Mother's Sister Huma Suzanne Paternal Grandfather Gene Budach Paternal Grandmother Rebekah [...] week 02/26/2022 How often do you attend [facility] or gnosticist services? More than 4 times per year 02/26/2022 Do you belong to any clubs o r organizations such as caodaism groups, unions, fraternal or athletic groups, or [...] Answer Date Recorded PHQ-2 Score 0 07/13/2022 [facility]at [facility] - Occupational Stress Questionnaire Answer Date [...] place to sleep or slept in a snf (including now)? No 02/26/2022 Nutrition Answer Date [...] Comments Blood Pressure 133/80 07/13/2022 8:21 AM EMPLOYMENT AGENCY MANAGER Pulse 80 07/13/2022 8:21 AM EMPLOYMENT AGENCY MANAGER Temperature 36.1 ??C (97 ??F) 07/13/2022 8:21 AM EMPLOYMENT AGENCY MANAGER Respiratory Rate 18 07/13/2022 8:21 AM EMPLOYMENT AGENCY MANAGER Oxygen Saturation 99% 07/13/2022 8:21 AM EMPLOYMENT AGENCY MANAGER Inhaled Oxygen Concentration - - Weight 75.8 kg (167 lb 1.7 oz) 07/13/2022 8:21 A M EMPLOYMENT AGENCY MANAGER Height 166 cm (5' 5.35) 07/13/2022 8:21 AM EMPLOYMENT AGENCY MANAGER Body Mass Index 27.51 07/13/2022 8:21 AM EMPLOYMENT AGENCY MANAGER Plan of Treatment Health Maintenance Due Date Last Done Comments CT Colonography 1970 Cologuard 1970 Colonoscopy 1970 Colorectal Cancer Surveillance 1970 HIV Screening 1970 Hepatitis C Screening 1970 Hepatitis B Vaccines (1 of 3 - 19+ 3-dose series) 1989 Mammogram 03/26/2013 03/26/2012 Lipid (Cholesterol) Screening 09/27/2020 09/28/2015, 09/27/2013, 04/02/2012 Depression Screening (Annual PHQ-2) 07/09/2023 COVID-19 Vaccine ( season) 2024 05/26/2021, 09/10/2020, 08/10/2020 Influenza Vaccine (#1) 2024 , 05/26/2021, 04/28/2020, [...] Procedure Name Priority Date/Time Associated Diagnosis Comments OUTSIDE DX SKELETAL Routine 02/06/2024 8 :10 AM CDT RENAL FUNCTION PANEL, S Routine 07/13/2022 9:16 AM EMPLOYMENT AGENCY MANAGER Preoperative Exam EXT THINPREP W/HPV CO-TEST SCREEN Routine 05/04/2017 LIPID PANEL, S Routine 09/28/2015 7:55 AM CDT BI BREAST SCREENING BILATERAL Routine 03/26/2012 7:33 AM CDT from Last 3 Months or Most Recently Relevant to Health Maintenance Results * XR HIP RT MIN 2V-Outside Skeletal Xray (02/06/2024 8:10 AM CDT) Narrative [facility] - 02/07/2024 8:03 AM CDT This order has been created and auto-finalized to support the import of outside images. If available, original interpretation can be found on the Media Tab in Chart Review, in Document Viewer, as an image in QREADS or as an Addendum. If a re-interpretation or overread is required please follow defined workflow.?? Provider Not In System IMG DIAGNOSTIC IM AGING PROCEDURES [facility] NA * (ABNORMAL) Renal Function Panel (07/13/2022 9:16 AM EMPLOYMENT AGENCY MANAGER) Potassium, P 4.9 3.6 - 5.2 mmol/L 07/13/2022 9:48 AM EMPLOYMENT AGENCY MANAGER OWAT Sodium, P 141 135 - 145 mmol/L 07/13/2022 9:48 AM EMPLOYMENT AGENCY MANAGER OWAT Chloride, P 103 98 - 107 mmol/L 07/13/2022 9:48 AM EMPLOYMENT AGENCY MANAGER OWAT Bicarbonate, P 30(H) 22 - 29 mmol/L 07/13/2022 9:48 AM EMPLOYMENT AGENCY MANAGER OWAT Anion Gap, P 8 7 - 15 07/13/2022 9:48 AM EMPLOYMENT AGENCY MANAGER OWAT BUN (Blood Urea Nitrogen), P 15 6 - 21 mg/dL 07/13/2022 9:48 AM EMPLOYMENT AGENCY MANAGER OWAT Creatinine 0.68 0.59 - 1.04 mg/dL 07/13/2022 9:48 AM EMPLOYMENT AGENCY MANAGER OWAT Estimated GFR (eGFR) >90 >=60 mL/min/BSA 07/13/2022 9:48 AM EMPLOYMENT AGENCY MANAGER OWAT Comment: Estimated GFR calculated using the 2020 CKD_EPI creatinine equation. Calcium, Total, P 9.3 8.6 - 10.0 mg/dL 07/13/2022 9:48 AM EMPLOYMENT AGENCY MANAGER OWAT Glucose, P 89 70 - 140 mg/dL 07/13/2022 9:48 AM EMPLOYMENT AGENCY MANAGER OWAT Albumin, P 4.4 3.5 - 5.0 g/dL 07/13/2022 9:48 AM EMPLOYMENT AGENCY MANAGER OWAT Phosphorus (Inorganic), P 2.5 2.5 - 4.5 mg/dL 07/13/2022 4:22 PM EMPLOYMENT AGENCY MANAGER AUST Blood (Blood, Venous) 07/13/2022 9:16 AM EMPLOYMENT AGENCY MANAGER 07/13/2022 9:24 AM EMPLOYMENT AGENCY MANAGER Narrative [facility] - 07/13/2022 4:22 PM EMPLOYMENT AGENCY MANAGER Specimen Information: Specimen ID: [id number] Specimen Type: Blood Specimen Collection Start Date: 07/13/2022 ??9:16 AM Specimen Received Date: 07/13/2022 ??9:24 AM Specimen ID: [id number] Specimen Type: Blood Specimen Collection Start Date: 07/13/2022 ??9:16 AM Specimen Received Date: 07/13/2022 ??3:57 PM Brock Valenzuela D.O. LAB BLOOD ADD -ON [facility] [address] [place] [address], [facility] OWAT [facility] [place] [address] [place] [address] AUST [facility] - [facility] [address] [place] [address] * EXT ThinPrep w/HPV Co-Test Screen (05/04/2017) [...] for FH and FDB is available through [facility]: FH/ADH Genetic Reflex Panel (test ADHP). Acquired (non-genetic) causes of markedly increased LDL cholesterol include cholestatic liver disease due to the presence of LpX. If a genetic form of hypercholesterolemia is suspected, family studies including biochemical testing for lipids (total cholesterol,triglycerides, LDL cholesterol and HDL cholesterol) are recommended. ??Please contact the laboratory at or the on-line test catalog at [facility] for information about how to order these [...] images. Narrative 03/26/2012 5:29 PM CDT EXAM: [place] Mammo Screening w/ CADD INDICATION: mammo COMPARISON: None. FINDINGS: The breasts are heterogeneously dense. The medial inferior portion of the left breast is asymmetrically more dense than the corresponding region in the right breast. Nothing suspicious within either breast, however. Procedure Note Bogdan Millan M.D. / ProviderWilliam M.D. - 11/29/2016 EXAM: [place] Mammo Screening w/ CADD INDICATION: mammo COMPARISON: [...] Recently Relevant to Health Maintenance Care Teams Child Custody Evaluator Relationship Specialty Start Date End Date Brock Valenzuela D.O. [address] [place] [address] PCP - General Internal Medicine 12/19/19
--- OUTSIDE RECORDS SUMMARY | 2024-04-01 10:09 | XMS_ITS | Clinical Summary ---
Author Organization [facility] Address [address] [place] [id number] Care Team Providers Care Medical Accounting Clerk Name Role Phone [facility], [facility] Primary Care Provider Allergies Active Allergy Reactions [...] Comments Blood Pressure 129/85 07/17/2022 9:47 AM CREATIVE WRITING PROFESSOR Pulse 60 07/17/2022 9:47 AM CREATIVE WRITING PROFESSOR Temperature 36.6 ??C (97.8 ??F) 07/17/2022 9:47 AM CS T Respiratory Rate 14 07/17/2022 9:47 AM CREATIVE WRITING PROFESSOR Oxygen Saturation 99% 07/17/2022 9:47 AM CREATIVE WRITING PROFESSOR Inhaled Oxygen Concentration - - Weight 75.2 kg (165 lb 11.2 oz) 07/17/2022 6:15 AM CREATIVE WRITING PROFESSOR Height 165.1 cm (5' 5) 07/17/2022 6:15 AM CREATIVE WRITING PROFESSOR Body Mass Index 27.57 07/17/2022 6:15 AM CREATIVE WRITING PROFESSOR Plan of Treatment Health Maintenance Due Date [...] 3-dose series) 1989 PAP 1991 LIPID 2010 PHQ-2 (once per calendar year) 2023 COVID-19 Vaccine ( - season) 2024 05/26/2021, 09/10/2020, 08/10/2020 INFLUENZA VACCINE (#1) 2024 , 04/28/2020, 07/04/2019, [...] GLUCOSE (EXTERNAL RESULT) Routine 07/13/2022 9:16 AM CREATIVE WRITING PROFESSOR from Last 3 Months or Most Recently Relevant to Health Maintenance Results * Glucose (External Result) (07/13/2022 9:16 AM CREATIVE WRITING PROFESSOR) Glucose (External) 89 70 - 140 mg/dL BRAVO Abdi SOLER Blood 07/13/2022 9:16 AM CREATIVE WRITING PROFESSOR [facility]ative [facility] 07/13/2022 9:16 AM CREATIVE WRITING PROFESSOR Care Everywhere, [facility] Provider Outside LAB - HIM EXTERNAL R ESULT LAWRENCE SOLER [address] [place] [address], [facility] [phone] from Last 3 Months or Most Recently Relevant to Health Maintenance Care Teams Medical Accounting Clerk Relationship Specialty Start Date End Date Clinic, [facility] [address] [place] [address] PCP - General 07/17/22
--- OUTSIDE RECORDS SUMMARY | 2024-04-01 10:09 | XMS_ITS | Clinical Summary ---
Author Organization [facility] Address [place], [place] [address] Care Team Providers Care Ripening Room Hand Name Role Phone Lavell Logan MD Primary [...] Active methylPREDNISolone (MEDROL, TANNER,) 4 mg tabletIndications:Ac [place] sinusitis, recurrence not specified, unspecified location,Seasonal allergic [...] (1 of 2) 2020 COVID-19 vaccine series ( season) 2024 05/26/2021, 09/10/2020, 08/10/2020 Influenza for age 50-64 03/09/2024 Pap test for age 21-65 12/23/2024 , 12/23/2021, 05/04/2017, Additional history exists Pneumococcal series for age 6-64 Aged Out No longer eligible based on patient's age to complete this topic Procedures Procedure Name Priority Date/Time Associated Diagnosis Comments HPV HIGH RISK Routine 12/23/2021 11:00 AM CDT from Last 3 Months or Most Recently Relevant to Health Maintenance Results * HPV HIGH RISK (12/23/2021 11:00 AM CDT) TYPE 16 Negative Negative 12/27/2021 4:59 PM CDT [facility] TRAL LABORATORY TYPE 18 Negative Negative 12/27/2021 4:59 PM CDT [facility] TRA LABORATORY OTHER HIGH RISK TYPES Negative Negative 12/27/2021 4:59 PM CDT [facility] TRAL [facility]ORAT[facility] Other (Cervical/Vagina l) 12/23/2021 11:00 AM CDT 12/26/2021 10:43 AM CDT Narrative [facility] - 12/27/2021 4:59 PM CDT HPV types 16, 18, 31, 33, 35, 39, 45, 51, 52, 56, 58, 59, 66 and 68 DNA were undetectable or below the pre-set threshold. Methodology: Andre Clary 4800 HPV Test October Brian [facility] [address] [place] [address], from Last 3 Months or Most Recently Relevant to Health Maintenance Care Teams Ripening Room Hand Relationship Specialty Start Date End Date Lavell Logan MD [address] [facility] MIR[place] Soler [address] PCP - General Family Practice 09/22/13
--- OUTSIDE RECORDS SUMMARY | 2024-04-01 10:10 | XMS_ITS | Encounter Summary ---
Author Organization [facility] Address [address] [place] [address] Care Team Providers Care Corset Fitter Name Role Phone Brock Valenzuela D.O. Primary Care Provide r Encounter Details Date Type Department Care Team (Late st Contact Info) Description 04/03/2022 Orders Only [facility] [address] [place] [phone] [facility], Provider, M.B., Ph.D. Screening Test Laboratory Social History Tobacco Use [...] How often do you attend chur or latter-day services? More than 4 times per year [...] Answer Date Recorded PHQ-2 Score 0 11/28/2019 [facility] - Occupational [...] documented as of this encounter Care Teams Corset Fitter Relationship Specialty Start Date End Date Brock Valenzuela D.O. [address] [place] [address] PCP - General Internal Medicine 6/12/20 documented as of this encounter
--- OUTSIDE RECORDS SUMMARY | 2024-04-01 10:10 | XMS_ITS | Encounter Summary ---
Author Organization [facility] Address [address] [place] [address] Care Team Providers Care Company Manager Name Role Phone Brock Valenzuela D.O. Primary Care Provide r Reason for Visit * Reason Onset Date Comments Pre-scheduling Questionnaire 02/08/2024 Hip Questionnaire Encounter Details Date Type Department Care Team (Latest Contact Info) Description 02/08/2024 Clinical Communication Department of Orthopedic Surgery in [place], [place] [address] [place] [address] Prescheduling, Provider Pre-scheduling Questionnaire ( Hip Questionnaire) Social History Tobacco Use Types Packs/Day Years [...] often do you attend chur ch or amish services? More than 4 times per year 02/26/2022 Do you belong to any clubs o r organizations such as jehovah's witness groups, unions, fraternal or athletic groups, or [...] 0 07/13/2022 [facility] - Occup[facility] Stress Questionnaire Answer Date [...] place to sleep or slept in a prison (including now)? No 02/26/2022 Nutrition Answer Date [...] on filedocumented in this encounter Care Teams Company Manager Relationship Specialty Start Date End Date Brock Valenzuela D.O. [address] [place] [phone] PCP - General Internal Medicine 12/19/19 documented as of this encounter
--- OUTSIDE RECORDS SUMMARY | 2024-04-01 10:10 | XMS_ITS | Referral Summary ---
Author Organization [facility] Address [address] [place] [address] Care Team Providers Care Vice President Of Engineering Name Role Phone Brock Valenzuela D.O. Primary Care Provide r Source Comments Patient records contain information from all sites at [facility]. For routine questions regarding patient records, call [phone] during business hours, M-F 8:00 AM - 5:00 PM Central Time. Record requests for emergency care only can be directed to [phone] at any time.[facility] Encounters Date Type Department Care Team Description 02/12/2024 Orders Only [facility] MNT Brock Valenzuela D.O. Screening Lipid 02/08/2024 Clinical Communication Department of Orthopedic Surgery in [place], [place] [address] [place] [address] Prescheduling, Provider Pre-scheduling Questionnaire ( Hip Questionnaire) 02/07/2024 [facility] [address] [place] [address] Tiffani Nair M.D. Pain Hip Right (Primary Dx); Osteoarthritis; Other Chronic Pain from Last 3 Months Allergies Active Allergy [...] How often do you attend chur or roman catholic services? More than 4 times per [...] Answer Date Recorded PHQ-2 Score 0 07/13/2022 [facility] - Occupational [...] Comments Blood Pressure 133/80 07/13/2022 8:21 AM WELDING PROCESS SPECIALIST Pulse 80 07/13/2022 8:21 AM WELDING PROCESS SPECIALIST Temperature 36.1 ??C (97 ??F) 07/13/2022 8:21 AM WELDING PROCESS SPECIALIST Respiratory Rate 18 07/13/2022 8:21 AM WELDING PROCESS SPECIALIST Oxygen Saturation 99% 07/13/2022 8:21 AM WELDING PROCESS SPECIALIST Inhaled Oxygen Concentration - - Weight 75.8 kg (167 lb 1.7 oz) 07/13/2022 8:21 A M WELDING PROCESS SPECIALIST Height 166 cm (5' 5.35) 07/13/2022 8:21 AM WELDING PROCESS SPECIALIST Body Mass Index 27.51 07/13/2022 8:21 AM WELDING PROCESS SPECIALIST Plan of Treatment Not on file Procedures Procedure Name Priority Date/Time Associated Diagnosis Comments OUTSIDE DX SKELETAL Routine 02/06/2024 8 :10 AM CDT RENAL FUNCTION PANEL, S Routine 07/13/2022 9:16 AM WELDING PROCESS SPECIALIST Preoperative Exam EXT THINPREP W/HPV CO-TEST SCREEN [...] In System IMG DIAGNOSTIC IM AGING PROCEDURES [facility] NA * (ABNORMAL) Renal Function Panel (07/13/2022 9:16 AM WELDING PROCESS SPECIALIST) Potassium, P 4.9 3.6 - 5.2 mmol/L 07/13/2022 9:48 AM WELDING PROCESS SPECIALIST OWAT Sodium, P 141 135 - 145 mmol/L 07/13/2022 9:48 AM WELDING PROCESS SPECIALIST OWAT Chloride, P 103 98 - 107 mmol/L 07/13/2022 9:48 AM WELDING PROCESS SPECIALIST OWAT Bicarbonate, P 30(H) 22 - 29 mmol/L 07/13/2022 9:48 AM WELDING PROCESS SPECIALIST OWAT Anion Gap, P 8 7 - 15 07/13/2022 9:48 AM WELDING PROCESS SPECIALIST OWAT BUN (Blood Urea Nitrogen), P 15 6 - 21 mg/dL 07/13/2022 9:48 AM WELDING PROCESS SPECIALIST OWAT Creatinine 0.68 0.59 - 1.04 mg/dL 07/13/2022 9:48 AM WELDING PROCESS SPECIALIST OWAT Estimated GFR (eGFR) >90 >=60 mL/min/BSA 07/13/2022 9:48 AM WELDING PROCESS SPECIALIST OWAT Comment: Estimated GFR calculated using the 2020 CKD_EPI creatinine equation. Calcium, Total, P 9.3 8.6 - 10.0 mg/dL 07/13/2022 9:48 AM WELDING PROCESS SPECIALIST OWAT Glucose, P 89 70 - 140 mg/dL 07/13/2022 9:48 AM WELDING PROCESS SPECIALIST OWAT Albumin, P 4.4 3.5 - 5.0 g/dL 07/13/2022 9:48 AM WELDING PROCESS SPECIALIST OWAT Phosphorus (Inorganic), P 2.5 2.5 - 4.5 mg/dL 07/13/2022 4:22 PM WELDING PROCESS SPECIALIST AUST Blood (Blood, Venous) 07/13/2022 9:16 AM WELDING PROCESS SPECIALIST 07/13/2022 9:24 AM WELDING PROCESS SPECIALIST Narrative [facility] - 07/13/2022 4:22 PM WELDING PROCESS SPECIALIST Specimen Information: Specimen ID: [id number] Specimen Type: Blood Specimen Collection Start Date: 07/13/2022 ??9:16 AM Specimen Received Date: 07/13/2022 ??9:24 AM Specimen ID: [id number] Specimen Type: Blood Specimen Collection Start Date: 07/13/2022 ??9:16 AM Specimen Received Date: 07/13/2022 ??3:57 PM Brock Valenzuela D.O. LAB BLOOD ADD -ON [facility] [address] [place] [address], [facility] [place] [address] [facility] [place] [address] [facility] [address] [place] [address] * EXT ThinPrep w/HPV Co-Test Screen (05/04/2017) [...] for FH and FDB is available through [facility]: FH/ADH Genetic Reflex Panel (test ADHP). Acquired (non-genetic) causes of markedly increased LDL cholesterol include cholestatic liver disease due to the presence of LpX. If a genetic form of hypercholesterolemia is suspected, family studies including biochemical testing for lipids (total cholesterol,triglycerides, LDL cholesterol and HDL cholesterol) are recommended. ??Please contact the laboratory at or the on-line test catalog at [employer] for information about how to order these [...] images. Narrative 03/26/2012 5:29 PM CDT EXAM: [place] Mammo Screening w/ CADD INDICATION: mammo COMPARISON: None. FINDINGS: The breasts are heterogeneously dense. The medial inferior portion of the left breast is asymmetrically more dense than the corresponding region in the right breast. Nothing suspicious within either breast, however. Procedure Note Bogdan Millan M.D. / William Juan M.D. - 11/29/2016 EXAM: [place] Mammo Screening w/ CADD INDICATION: mammo COMPARISON: [...] Recently Relevant to Health Maintenance Care Teams Vice President Of Engineering Relationship Specialty Start Date End Date Brock Valenzuela D.O. [address] [place] [phone] PCP - General Internal Medicine 12/19/19
--- OUTSIDE RECORDS SUMMARY | 2024-04-01 10:10 | XMS_ITS | Encounter Summary ---
Author Organization [facility] Address [address] [place] [address] Care Team Providers Care Purchasing Intern Name Role Phone Brock Valenzuela D.O. Primary Care Provide r Encounter Details Date Type Department Care Team (Late st Contact Info) Description 02/12/2024 Orders Only [facility] Brock Valenzuela, D.O. [address] [facility] [place] [address] Screening Lipid Social History Tobacco Use Types Packs/Day Years [...] often do you attend chur ch or sabianist services? More than 4 times per year 02/26/2022 Do you belong to any clubs o r organizations such as scientologist groups, unions, fraternal or athletic groups, or [...] Answer Date Recorded PHQ-2 Score 0 07/13/2022 [facility] [...] place to sleep or slept in a usp (including now)? No 02/26/2022 Nutrition Answer Date [...] this encounter Visit Diagnoses Diagnosis Screening Lipid documented in this encounter Care Teams Purchasing Intern Relationship Specialty Start Date End Date Brock Valenzuela D.O. [address] [place] [phone] PCP - General Internal Medicine 12/19/19 documented as of this encounter
--- OUTSIDE RECORDS SUMMARY | 2024-04-01 10:10 | XMS_ITS | Encounter Summary ---
Author Organization [facility] Address [address] [place] [address] Care Team Providers Care Tester Regulator Name Role Phone Brock Valenzuela D.O. Primary Care Provide r Reason for Referral * Outpatient (Routine) - Authorized Specialty Diagnoses / Procedures Referred By Abby huston Referred To Contact Orthopedic Surgery Diagnoses Pain Hip Right Osteoarthritis Other Chronic Pain Tiffani Nair M.D. [address] [place] [address] [facility] Referral ID Status Reason Start Date Expiration Date V isits Requested Visits Authorized [id number] Authorized 02/07/2024 08/08/2025 1 1 Encounter Details Date Type Department Care Team (Late st Contact Info) Description 02/07/2024 [facility] [address] [place] [address] Tiffani Nair M.D. [address] [place] [address] Pain Hip Right (Primary Dx); Osteoarthritis; Other Chronic Pain Social History Tobacco Use Types Packs/Day Years [...] week 02/26/2022 How often do you attend [facility] or protestant services? More than 4 times per year 02/26/2022 Do you belong to any clubs o r organizations such as taoist groups, unions, fraternal or athletic groups, or [...] Answer Date Recorded PHQ-2 Score 0 07/13/2022 [facility] - Occupational [...] of this encounter Plan of Treatment Scheduled Referrals Name Type Priority Associated Diagnoses Order Schedule Orthopedics Referral Outpatient Referral Routine Pain Hip Right Osteoarthritis Other Chronic Pain Expected: 02/07/2024 (Approximate), Expires: 05/09/2025 documented as of this encounter Visit Diagnoses Diagnosis Pain Hip Right- Primary Osteoarthritis Other Chronic Pain documented in this encounter Care Teams Tester Regulator Relationship Specialty Start Date End Date Brock Valenzuela D.O. [address] [place] [address] PCP - General Internal Medicine 12/19/19 documented as of this encounter
--- OUTSIDE RECORDS SUMMARY | 2024-04-01 10:10 | XMS_ITS ---
Author Organization [facility] Address [address] [place] [address] Care Team Providers Care Compliance Engineer Products Name Role Phone Unavailable Unavailable Unavailable Surgery Details Not on file Complications Check Surgery Details section. Procedure Estimated Blood Loss Check Surgery Details section. Procedure Findings Check Surgery Details section. Procedure Specimens Taken Check Surgery Details section.
== END 2024-04-01 10:07 | disposition home or self-care (01) ==
LOC: NFLDREF 10:07
PROVIDERS: PCP Family Medicine; Visit Provider Obstetrics & Gynecology
DX: N95.1 Menopausal and female climacteric states (principal)
CPT/HCPCS: 84443

== ENCOUNTER 2025-03-19 08:24 | Outpatient (CLI) | payer BC, SELFPAY | END 2025-03-19 08:25 | disposition home or self-care (01) | PROVIDERS: PCP Family Medicine; Visit Provider Family Medicine | DX: E78.5 Hyperlipidemia, unspecified (principal); R53.83 Other fatigue; Z79.1 Long term (current) use of non-steroidal anti-inflammatories (NSAID) | CPT/HCPCS: 80053; 80061 ==

== ENCOUNTER 2025-05-15 14:44 | Outpatient (CLI) | payer BC, SELFPAY ==
--- NOTE | 2025-05-15 15:20 | CRLHL7_ITS ---
For Patients: As a result of the Century Cures Act, medical imaging exams and procedure reports are released immediately into your electronic medical record. You may view this report before your referring provider. If you have questions, please contact your health care provider. INDICATION: BILATERAL SCREENING MAMMOGRAM, ASYMPTOMATIC 54 Y/O FEMALE COMPARISON: 02/06/2024, 01/16/2023, 12/13/2021 TECHNIQUE: Digital mammogram in CC and MLO projections including computer-aided detection (CAD) and tomosynthesis. BREAST COMPOSITION: The breasts are heterogeneously dense, which may obscure small masses. FINDINGS: No suspicious findings. ASSESSMENT: BI-RADS 2 Benign RECOMMENDATION: Annual screening mammogram. A lay language report of this examination will be provided to the patient. Dictated by: Trevor Avalos MD @ 05/18/2025 10:07:56 (Electronically Signed)
== END 2025-05-15 14:45 | disposition home or self-care (01) ==
LOC: MAMMO 14:44
PROVIDERS: PCP Family Medicine; Visit Provider Family Medicine
DX: Z12.31 Encounter for screening mammogram for malignant neoplasm of breast (principal); R92.333 Mammographic heterogeneous density, bilateral breasts
CPT/HCPCS: 77063; 77067